=== PATIENT | female | born 1995 | race Caucasian/White ===

== ENCOUNTER → 2021-08-21 15:19 | Outpatient (BNVA) | payer OTHER, SELFPAY | PROVIDERS: PCP Internal Medicine Gastroenterology; Referring Provider Internal Medicine Gastroenterology; Visit Provider Surgery | DX: K64.5 Perianal venous thrombosis (principal) | CPT/HCPCS: 99202 ==

== ENCOUNTER → 2023-09-28 10:05 | Outpatient (BNVA) | payer OTHER, SELFPAY | PROVIDERS: PCP Nurse Practitioner; Visit Provider Physician Assistant ==

== ENCOUNTER 2023-10-13 08:59 | Outpatient (AMB) | payer OTHER, SELFPAY ==
--- NOTE | 2023-10-13 12:17 | A.OFFVIS_ITS ---
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 BMI 47.2 HPI Details Start time: 12.35pm, End time: 1.38pm ?I spent 53 minutes speaking with the patient on the phone plus an additional 10 minutes reviewing and updating records for a total of 63 minutes HPI Comments History of Present Illness Details Previous weight loss efforts: RDs, self diets, MWL program at [facility] Wakes up: 8am, Sleeps: 10pm Breakfast: skips or a [employer] powdered protein shake Lunch: 1.30-2pm (salad with chicken wings, sushi) Dinner: 7pm (protein , starch, vegetables) Snacks: 8-9pm (chocolate or ice cream) Exercise: none, has a Gym membership Fluids: Coffee 1 per day (cream and sugar), tea: rarely, soda: diet soda but stopped, juice: 3-4 /wk, ETOH: none PFSH Medical History (Updated 10/13/23 @ 12:41 by Kurtis Ferguson MD) ADHD Anxiety Depression Morbid obesity Thrombosed external hemorrhoids Polycystic ovarian syndrome Surgical History (Updated 10/13/23 @ 12:41 by Kurtis Ferguson MD) History of delivery History of wisdom tooth extraction Family History (Updated 08/21/21 @ 15:30 by JULY Yates) Mother Non-Hodgkin lymphoma Social History (Updated 08/21/21 @ 15:31 by JULY Yates) Patient Tobacco Use Status: Current everyday Tobacco user Physical Exam Vital Signs: BMI result Body Mass Index 47.2 Assessment & Plan Assessment & Plan (1) Polycystic ovarian syndrome: Code(s): E28.2 - Polycystic ovarian syndrome Plan: (2) Morbid obesity: Code(s): E66.01 - Morbid (severe) obesity due to excess calories Plan: 1.? Plan for lap sleeve gastrectomy. If diaphragmatic or ventral hernias are present at time of surgery, these will be repaired laparoscopically as well. Risks and complications were discussed in detail including possible conversion to an open procedure, anastomotic leak, bleeding requiring transfusion, small bowel obstruction, , DVT and pulmonary embolism, cardiac, or pulmonary complications, as intermediate accountant complications such as anastomotic ulcer, insufficient weight loss and vitamin deficiencies. I emphasized the importance of close follow-up, adherence to instructions and good communication. 2. Nutritional counseling. Start with 2 CELEBRATE REBUILD protein (buy at [facility] [employer] [facility]) shakes (TWO scoops EACH in 8oz low fat unsweetened almond milk each) at 9am-11am and 12pm-2pm, 1 protein bar (CELEBRATE protein bars, buy at [facility] [employer] [facility]) at 3pm-5pm, dinner at 6pm (10 forks of protein and 10 forks of salad/vegetables) AND one more protein bar after dinner at 8pm-10pm. So you do 2 protein shakes, 2 protein bars and one meal per day. Meal to include lean meat (beef, fish, pork, turkey, chicken), or lithuanian yogurt, or egg whites, or beans with a salad with olive oil and fruits (berries, pears, apples, kiwi). Avoid salt, breads, potatoes, rice, pasta, desserts. 3. Each shake would be drunk slowly, like coffee in a period of 2 hours. 4. Cut each bar in 4 pieces and eat each piece in 30min ?to make each bar last 2 hours. 5. I emphasized the importance of measuring accurately the food portion and measure it when serving the food in plate 6. The meal portions include 10 full-size forks of meat and 10 full-size forks of salad. You always eat the meat portion but you can replace up to 5 forks for salad/vegetables with rice, potatoes or pasta, or a fruit ?if you like. The less you do it the better weight loss will be. 7. One full-size fork is what it can be scooped on the fork without falling aside and not what can be bit with the fork. Use regular forks like those you find in a typical restaurant. 8.? Please send me weight measurements as soon as possible and then once a week. Always include your diet and exercise plan. 9. Start going to the Gym doing treadmill with an incline of 2.0 and speed of 3.0. Increase incline by 1 every 3 min to a max incline of 8.0, stay 3min at 8.0 and then return to 2.0 and repeat same steps until calorie goal is met. Goal is to burn 2000 calories per week on exercise, which means either 300 calories daily, or 400 calories 5 days per week, or 500 calories 4 days per week, or 650 calories 3 days per week. 10. I would storngly recommend that you purchased a stationary bike, elliptical or treadmill at home that can track calories. Let me know if you do so I can give you an exercise plan. 11.?It is important of avoiding and for at least 18 months postoperatively and has been discussed at the infosession. 12. Goal is to lose at least 1.5-2lbs per week 13. Goal to lose 10% of your weight before surgery, which is about 28lbs. Ultimate weight goal: 255lbs before surgery 14. Please follow the diet plan exactly without any change. If you don't like something about the plan or you feel hungry you need to communicate with me so I can help you revise the plan. You should not change the plan yourself. (3) Anxiety: Code(s): F41.9 - Anxiety disorder, unspecified Plan: Orders: Orders Insulin Today E28.2 - Polycystic ovarian syndrome, E66.01 - Morbid (severe) obesity due to excess calories, F32.A - Depression, unspecified, F41.9 - Anxiety disorder, unspecified, F90.9 - Attention-deficit hyperactivity disorder, unspecified type Hemoglobin A1c Today E28.2 - Polycystic ovarian syndrome, E66.01 - Morbid (severe) obesity due to excess calories, F32.A - Depression, unspecified, F41.9 - Anxiety disorder, unspecified, F90.9 - Attention-deficit hyperactivity disorder, unspecified type Lipid Panel Today E28.2 - Polycystic ovarian syndrome, E66.01 - Morbid (severe) obesity due to excess calories, F32.A - Depression, unspecified, F41.9 - Anxiety disorder, unspecified, F90.9 - Attention-deficit hyperactivity disorder, unspecified type Comprehensive Met. Panel Today E28.2 - Polycystic ovarian syndrome, E66.01 - Morbid (severe) obesity due to excess calories, F32.A - Depression, unspecified, F41.9 - Anxiety disorder, unspecified, F90.9 - Attention-deficit hyperactivity disorder, unspecified type Vitamin B12 and Folate Today E28.2 - Polycystic ovarian syndrome, E66.01 - Morbid (severe) obesity due to excess calories, F32.A - Depression, unspecified, F41.9 - Anxiety disorder, unspecified, F90.9 - Attention-deficit hyperactivity disorder, unspecified type Zinc Today E28.2 - Polycystic ovarian syndrome, E66.01 - Morbid (severe) obesity due to excess calories, F32.A - Depression, unspecified, F41.9 - Anxiety disorder, unspecified, F90.9 - Attention-deficit hyperactivity disorder, unspecified type Vitamin B1 Today E28.2 - Polycystic ovarian syndrome, E66.01 - Morbid (severe) obesity due to excess calories, F32.A - Depression, unspecified, F41.9 - Anxiety disorder, unspecified, F90.9 - Attention-deficit hyperactivity disorder, unspecified type Vitamin A Today E28.2 - Polycystic ovarian syndrome, E66.01 - Morbid (severe) obesity due to excess calories, F32.A - Depression, unspecified, F41.9 - Anxiety disorder, unspecified, F90.9 - Attention-deficit hyperactivity disorder, unspecified type TSH reflex Free T4 Today E28.2 - Polycystic ovarian syndrome, E66.01 - Morbid (severe) obesity due to excess calories, F32.A - Depression, unspecified, F41.9 - Anxiety disorder, unspecified, F90.9 - Attention-deficit hyperactivity disorder, unspecified type Ferritin Today E28.2 - Polycystic ovarian syndrome, E66.01 - Morbid (severe) obesity due to excess calories, F32.A - Depression, unspecified, F41.9 - Anxiety disorder, unspecified, F90.9 - Attention-deficit hyperactivity disorder, unspecified type H Pylori Breath Test Today E28.2 - Polycystic ovarian syndrome, E66.01 - Morbid (severe) obesity due to excess calories, F32.A - Depression, unspecified, F41.9 - Anxiety disorder, unspecified, F90.9 - Attention-deficit hyperactivity disorder, unspecified type Complete Blood Count Auto Diff Today E28.2 - Polycystic ovarian syndrome, E66.01 - Morbid (severe) obesity due to excess calories, F32.A - Depression, unspecified, F41.9 - Anxiety disorder, unspecified, F90.9 - Attention-deficit hyperactivity disorder, unspecified type IRON PROFILE Today E28.2 - Polycystic ovarian syndrome, E66.01 - Morbid (severe) obesity due to excess calories, F32.A - Depression, unspecified, F41.9 - Anxiety disorder, unspecified, F90.9 - Attention-deficit hyperactivity disorder, unspecified type C Reactive Protein Today E28.2 - Polycystic ovarian syndrome, E66.01 - Morbid (severe) obesity due to excess calories, F32.A - Depression, unspecified, F41.9 - Anxiety disorder, unspecified, F90.9 - Attention-deficit hyperactivity disorder, unspecified type Vitamin D 25-OH Total Today E28.2 - Polycystic ovarian syndrome, E66.01 - Morbid (severe) obesity due to excess calories, F32.A - Depression, unspecified, F41.9 - Anxiety disorder, unspecified, F90.9 - Attention-deficit hyperactivity disorder, unspecified type US abdomen comp w elastography Today E28.2 - Polycystic ovarian syndrome, E66.01 - Morbid (severe) obesity due to excess calories, F32.A - Depression, unspecified, F41.9 - Anxiety disorder, unspecified, F90.9 - Attention-deficit hyperactivity disorder, unspecified type XR chest 2V Today E28.2 - Polycystic ovarian syndrome, E66.01 - Morbid (severe) obesity due to excess calories, F32.A - Depression, unspecified, F41.9 - Anxiety disorder, unspecified, F90.9 - Attention-deficit hyperactivity disorder, unspecified type ECG 12 lead EKG Today E28.2 - Polycystic ovarian syndrome, E66.01 - Morbid (severe) obesity due to excess calories, F32.A - Depression, unspecified, F41.9 - Anxiety disorder, unspecified, F90.9 - Attention-deficit hyperactivity disorder, unspecified type FL upper GI w air Today E28.2 - Polycystic ovarian syndrome, E66.01 - Morbid (severe) obesity due to excess calories, F32.A - Depression, unspecified, F41.9 - Anxiety disorder, unspecified, F90.9 - Attention-deficit hyperactivity disorder, unspecified type Referrals Nutrition/Dietitian Referral E28.2 - Polycystic ovarian syndrome, E66.01 - Morbid (severe) obesity due to excess calories, F32.A - Depression, unspecified, F41.9 - Anxiety disorder, unspecified, F90.9 - Attention-deficit hyperactivity disorder, unspecified type Behavioral Health Referral E28.2 - Polycystic ovarian syndrome, E66.01 - Morbid (severe) obesity due to excess calories, F32.A - Depression, unspecified, F41.9 - Anxiety disorder, unspecified, F90.9 - Attention-deficit hyperactivity disorder, unspecified type Telehealth Telehealth Location of provider rendering services: practice address Location of patient: address on file Patient Identification confirmed using: Name, : Yes Telehealth method: voice only Patient verbally consented to treatment: Yes Patient verbally consented to billing insurance company: Yes Patient informed of any privacy concerns related to visit: Yes Minutes spent on Phone/Video with Pt.: 63 Coding Level of Care Code Tele [facility] Pt Level 5 (53647) Diagnoses Polycystic ovarian syndrome E28.2 Morbid obesity E66.01 Anxiety F41.9 Time Spent (min) 63
[2023-10-13 12:51] VITALS: BMI 47.2
== END 2023-10-13 13:39 | disposition home or self-care (01) ==
LOC: HO.HBS 08:59
PROVIDERS: PCP Nurse Practitioner; Visit Provider Surgery
DX: E66.01 Morbid (severe) obesity due to excess calories (principal); Z68.42 Body mass index [BMI] 45.0-49.9, adult; E28.2 Polycystic ovarian syndrome; F41.9 Anxiety disorder, unspecified
CPT/HCPCS: 99205

== ENCOUNTER → 2023-10-13 08:59 | Outpatient (BNVA) | payer OTHER, SELFPAY | PROVIDERS: PCP Nurse Practitioner; Visit Provider Surgery ==

== ENCOUNTER 2023-10-26 08:56 | Outpatient (AMB) | payer OTHER, SELFPAY ==
--- NOTE | 2023-10-26 08:37 | MHC.AMNUTRGE ---
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 She thinks she has RSV, has been sick fo 4 weeks . Hasn't been able to full commit to surgeons plan for this reason. Stopped drinking sugar sweetened beverages. has been drinking the shakes. Tries to eat lots of vegetables when feeling that she needs more. Exercise: none SWL classes: none Previous weight loss methods attempted [facility] 4 years ago surgical , had a baby 1 year 3 MO ago. Dietary counseling reduction Who buys your food self Who prepares/cooks your food self Meal frequency regular: dinner (late ) and snacks (after dinner ), irregular: lunch and never: breakfast (usually skipped ) Lifestyle Eating out 4 or more times/week Food frequency Fruit: daily, Vegetables: daily, Grains/pasta/breads/cereal (carbs): daily, Meats/poultry/fish (protein): daily (no seafood. eats chicken, cow and pork ), Meat substitutes/nuts/seeds/legumes: daily, Processed foods/meats: daily, Restaurants/fast foods: daily, Water: never, Soda: daily, Juice: daily, Coffee: daily and Alcohol: never Diagnosis Nutrition problem #1 overweight/obesity As related to (etiology) #1 excess energy intake and physical inactivity As evidenced by (sign/symptom) #1 high BMI Monitoring/Goals Nutrition problem monitoring total energy intake, level of knowledge/skill, total PRO intake, total CHO intake and weight Outcome progress progressing Learning/Education Readiness to learn good Stages of change action Educational materials provided Yes Most Recent Diabetes Results: No Data to Display [facility] Medical History (Updated 10/13/23 @ 12:41 by Kurtis Ferguson MD) ADHD Anxiety Depression Morbid obesity Thrombosed external hemorrhoids Polycystic ovarian syndrome Surgical History (Updated 10/13/23 @ 12:41 by Kurtis Ferguson MD) History of delivery History of wisdom tooth extraction Family History (Updated 08/21/21 @ 15:30 by JULY Yates) Mother Non-Hodgkin lymphoma Social History (Updated 08/21/21 @ 15:31 by JULY Yates) Patient Tobacco Use Status: Current everyday Tobacco user Assessment & Plan Assessment & Plan (1) Morbid obesity: Code(s): E66.01 - Morbid (severe) obesity due to excess calories Plan nutrition f/u 11/16 1pm telehealth Telehealth Telehealth Location of provider rendering services: practice address Location of patient: address on file Patient Identification confirmed using: Name, : Yes Telehealth method: voice only Patient verbally consented to treatment: Yes Patient verbally consented to billing insurance company: Yes Patient informed of any privacy concerns related to visit: Yes Minutes spent on Phone/Video with Pt.: 20 Coding Level of Care Code Nutr Indiv Intake (34265) Diagnoses Morbid obesity E66.01 Time Spent (min) 20
[2023-10-26 09:07] VITALS: BMI 46.4
== END 2023-10-26 09:06 | disposition home or self-care (01) ==
LOC: HO.HBS 08:56
PROVIDERS: PCP Nurse Practitioner; Visit Provider Dietitian, Registered
DX: E66.01 Morbid (severe) obesity due to excess calories (principal)

== ENCOUNTER → 2023-10-26 08:56 | Outpatient (BNVA) | payer OTHER, SELFPAY | PROVIDERS: PCP Nurse Practitioner; Visit Provider Dietitian, Registered | DX: E66.01 Morbid (severe) obesity due to excess calories (principal); Z68.42 Body mass index [BMI] 45.0-49.9, adult; Z71.3 Dietary counseling and surveillance | CPT/HCPCS: 97802 ==

== ENCOUNTER 2023-10-29 08:11 | Outpatient (AMB) | payer OTHER, SELFPAY ==
--- NOTE | 2023-10-29 10:08 | A.OFFVIS_ITS ---
Intake VS Expanded 10/29/23 10:17 Height 5 ft 5 in Weight 279 lb 9 oz BMI 46.5 Body Fat % 54.7 Body Fat Mass 153.1 Fat Free Mass 126.8 Visceral Fat Rating 19 Body Water % 36 Body Water Mass 100.7 Basal Metabolic Rate/Score 1,982 Intake Visit Reasons: TV Follow Up SWL - 1ST Allergies No Known Allergies Allergy (Verified 10/13/23 12:37) HPI TV Follow Up SWL - 1ST HPI Details Start time: 10.02am, End time: 10.24am ?I spent 17 minutes speaking with the patient on the phone plus an additional 5 minutes reviewing and updating records for a total of 22 minutes HPI Comments History of Present Illness Details Overall weight loss: 3.9lbs, 0r 1.37% TBWL. Is doing 2 Celebrate Rebuild protein shakes (2 scoops in almond milk), 2 Celebrate protein bars and one meal (10 forks of protein and 10 forks of salad or vegetables) at 7-8pm Exercise: Gym. Was ill last week however [facility] Medical History (Updated 10/13/23 @ 12:41 by Kurtis Ferguson MD) ADHD Anxiety Depression Morbid obesity Thrombosed external hemorrhoids Polycystic ovarian syndrome Surgical History (Updated 10/13/23 @ 12:41 by Kurtis Ferguson MD) History of delivery History of wisdom tooth extraction Family History (Updated 08/21/21 @ 15:30 by JLUY Yates) Mother Non-Hodgkin lymphoma Social History (Updated 08/21/21 @ 15:31 by JULY Yates) Patient Tobacco Use Status: Current everyday Tobacco user Assessment & Plan Assessment & Plan (1) Morbid obesity: Code(s): E66.01 - Morbid (severe) obesity due to excess calories Plan: 1. Change the nutritional plan to one Celebrate protein bar at 9am-11am, one CELEBRATE REBUILD protein (buy at hospital[facility] [employer] [facility]) shake (TWO scoops EACH in 8oz low fat unsweetened almond milk each) at 12pm-2pm, 1 protein bar (CELEBRATE protein bars, buy at [facility] [facility]) at 3pm-5pm, dinner at 6pm (10 forks of protein and 10 forks of salad/vegetables) AND one more protein bar after dinner at 8pm-10pm. So you do 1 protein shake, 3 protein bars and one meal per day. 2. Re-start exercise as soon as you feel better and the new treadmill arrives 3. Continue to send me weight measurements weekly on Wednesdays Telehealth Telehealth Location of provider rendering services: practice address Location of patient: address on file Patient Identification confirmed using: Name, : Yes Telehealth method: voice only Patient verbally consented to treatment: Yes Patient verbally consented to billing insurance company: Yes Patient informed of any privacy concerns related to visit: Yes Minutes spent on Phone/Video with Pt.: 22 Coding Level of Care Code Tele Est Pt Level 3 (19914) Diagnoses Morbid obesity E66.01 Time Spent (min) 22
[2023-10-29 10:17] VITALS: BMI 46.5
== END 2023-10-29 10:24 | disposition home or self-care (01) ==
PROVIDERS: PCP Nurse Practitioner; Visit Provider Surgery
DX: E66.01 Morbid (severe) obesity due to excess calories (principal); Z68.42 Body mass index [BMI] 45.0-49.9, adult
CPT/HCPCS: 99213

== ENCOUNTER → 2023-10-29 08:11 | Outpatient (BNVA) | payer OTHER, SELFPAY | PROVIDERS: PCP Nurse Practitioner; Visit Provider Surgery ==

== ENCOUNTER 2023-11-02 12:20 | Outpatient (REF) | payer OTHER, SELFPAY ==
--- NOTE | 2023-11-02 12:27 | ECG_ITS ---
Test Reason : MORBID OBESITY Blood Pressure : / mmHG Vent. Rate : 105 BPM Atrial Rate : 105 BPM P-R Int : 146 ms QRS Dur : 086 ms QT Int : 336 ms P-R-T Axes : 043 006 016 degrees QTc Int : 444 ms Sinus tachycardia Otherwise normal ECG No previous ECGs available Referred By: Kurtis Ferguson Electronically Signed By:SALONI GONZALEZ MD
[2023-11-02 12:50] LABS: MANUAL DIFF FLAG NO
[2023-11-02 13:04] LABS: Basophils Absolute Auto 0.1 X10*3/uL (0.0-0.2); Basophils Percent Auto 0.4 % (0-2); Eosinophils Absolute Auto 0.6 X10*3/uL (0.0-0.4); Eosinophils Percent Auto 4.2 % (0-4); Hematocrit 43.2 % (37.0-47.0); Hemoglobin 13.9 g/dl (12.0-16.0); Imm Gran Abs Auto 0.06 X10*3/uL (0.00-0.03); Imm Gran Pct Auto 0.4 % (0.0-0.4); Lymphocytes Absolute Auto 2.3 X10*3/uL (1.2-4.9); Lymphocytes Percent Auto 17.3 % (20-40); Mean Corpuscular HGB Conc 32.2 g/dl (31.0-35.0); Mean Corpuscular Hemoglobin 26.7 pg (27.0-33.0); Mean Corpuscular Volume 83.1 fL (80.0-98.0); Mean Platelet Volume 10.2 fL (9.4-12.3); Monocytes Absolute Auto 0.7 X10*3/uL (0.1-1.2); Monocytes Percent Auto 5.5 % (2-11); Neutrophils Absolute Auto 9.7 x10*3/uL (2.0-8.3); Neutrophils Percent Auto 72.2 % (45-73); Platelet Count 310 X10*3/uL (160-400); Red Cell Distribution Width 14.6 % (11.0-16.0); White Blood Count 13.4 X10*3/uL (4.8-10.8)
[2023-11-02 13:15] LABS: Estimated Average Glucose 97 mg/dL
[2023-11-02 14:18] LABS: Alanine Aminotransferase 29 U/L (0-31); Albumin Level 3.8 g/dL (3.5-5.0); Alkaline Phosphatase 105 U/L (39-117); Anion Gap 14 (12-20); Aspartate Amino Transferase 14 U/L (5-31); Bilirubin Total 0.3 mg/dL (0.0-1.0); Blood Urea Nitrogen 11 mg/dL (9-16); C Reactive Protein 3.51 mg/dL (< or = 0.50); Carbon Dioxide 20 mmol/L (22-29); Chloride 110 mmol/L (96-108); Cholesterol 130 mg/dL (<200); Estimated Glomerular Filt Rate > 60; Glucose Random 81 mg/dL (60-115); HDL Cholesterol 43 mg/dL (>40); Iron 39 mcg/dL (30-160); LDL Cholesterol Calculated 68 mg/dL (<100); Percent Iron Saturation 10 % (15-50); Potassium 3.7 mmol/L (3.3-5.1); Sodium 140 mmol/L (135-145); Total Iron Binding Capacity 376 mcg/dL (228-428); Total Protein 7.5 g/dL (6.5-8.0); Triglycerides 98 mg/dL (<150); Unsaturated Iron Binding 337 ug/dL
[2023-11-02 14:37] LABS: Ferritin 39 ng/mL (10-122); Insulin 12 uU/mL (2-29); TSH reflex Free T4 1.28 uIU/mL (0.32-4.0); Vitamin D 25-OH Total 23.3 ng/mL (>30)
[2023-11-02 14:42] LABS: Folate 6.7 ng/mL (> or = 4.0); Vitamin B12 398 pg/mL (200-900)
[2023-11-06 04:54] LABS: Zinc 74 mcg/dL (60-130)
[2023-11-08 14:58] LABS: Vitamin B1 6 nmol/L (8-30)
[2023-11-08 20:19] LABS: Vitamin A 51 mcg/dL (38-98)
== END 2023-11-02 12:21 | disposition home or self-care (01) ==
LOC: HO.XRAY 12:20
PROVIDERS: Visit Provider Surgery
DX: E66.01 Morbid (severe) obesity due to excess calories (principal); E28.2 Polycystic ovarian syndrome; F32.A Depression, unspecified; F41.9 Anxiety disorder, unspecified; F90.9 Attention-deficit hyperactivity disorder, unspecified type
CPT/HCPCS: 36415; 71046; 80053; 80061; 82306; 82607; 82728; 82746; 83036; 83525; 83540; 84425; 84443; 84590; 84630; 85025; 86140; 93005

== ENCOUNTER → 2023-11-02 12:27 | Outpatient (BNV) | payer OTHER, SELFPAY | PROVIDERS: Visit Provider Internal Medicine Cardiovascular Disease | DX: R00.0 Tachycardia, unspecified (principal) | CPT/HCPCS: 93010 ==

== ENCOUNTER 2023-11-16 09:40 | Outpatient (AMB) | payer OTHER, SELFPAY ==
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
== END 2023-11-16 10:11 | disposition home or self-care (01) ==
LOC: HO.HBST 09:41
PROVIDERS: Visit Provider Counselor Mental Health
DX: F90.9 Attention-deficit hyperactivity disorder, unspecified type (principal); E66.01 Morbid (severe) obesity due to excess calories
CPT/HCPCS: 90791

== ENCOUNTER 2023-11-16 10:09 | Outpatient (REF) | payer OTHER, SELFPAY | END 2023-11-16 10:10 | disposition home or self-care (01) | LOC: HO.US 10:09 | PROVIDERS: Visit Provider Surgery | DX: E28.2 Polycystic ovarian syndrome (principal); E66.01 Morbid (severe) obesity due to excess calories; F32.A Depression, unspecified; F41.9 Anxiety disorder, unspecified; F90.9 Attention-deficit hyperactivity disorder, unspecified type; Z71.3 Dietary counseling and surveillance | CPT/HCPCS: 76705; 76981; 97803 ==

== ENCOUNTER 2023-11-16 11:35 | Outpatient (AMB) | payer OTHER, SELFPAY ==
--- NOTE | 2023-11-16 10:50 | A.OFFVIS_ITS ---
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 She thinks she has RSV, has been sick for several weeks. however she is having her bars and shaks which she enjoys and honors her hunger cues as well Exercise: none due for being sick SWL classes: completed and scored well. reviewed today Previous weight loss methods attempted [facility] 4 years ago surgical , had a baby 1 year 3 MO ago. Dietary counseling reduction Diagnosis Nutrition problem #1 overweight/obesity As related to (etiology) #1 excess energy intake and physical inactivity As evidenced by (sign/symptom) #1 high BMI Monitoring/Goals Nutrition problem monitoring total energy intake, level of knowledge/skill, total PRO intake, total CHO intake and weight Outcome progress progressing Learning/Education Readiness to learn good Stages of change action Educational materials provided Yes Most Recent Diabetes Results: Cholesterol 130 mg/dL (<200) 11/02/23 HDL Cholesterol 43 mg/dL (>40) 11/02/23 Triglycerides 98 mg/dL (<150) 11/02/23 Creatinine 0.78 mg/dL (0.5-1.4) 11/02/23 Blood Urea Nitrogen 11 mg/dL (9-16) 11/02/23 Sodium 140 mmol/L (135-145) 11/02/23 Potassium 3.7 mmol/L (3.3-5.1) 11/02/23 Chloride 110 mmol/L (96-108) H 11/02/23 Carbon Dioxide 20 mmol/L (22-29) L 11/02/23 Calcium 9.0 mg/dL (8.4-10.2) 11/02/23 AST 14 U/L (5-31) 11/02/23 ALT 29 U/L (0-31) 11/02/23 Total Protein 7.5 g/dL (6.5-8.0) 11/02/23 Albumin 3.8 g/dL (3.5-5.0) 11/02/23 [facility] Medical History (Updated 11/03/23 @ 17:22 by Kurtis Ferguson MD) ADHD Anxiety Depression Morbid obesity Thrombosed external hemorrhoids Polycystic ovarian syndrome Surgical History (Updated 10/13/23 @ 12:41 by Kurtis Ferguson MD) History of delivery History of wisdom tooth extraction Family History (Updated 08/21/21 @ 15:30 by JULY Yates) Mother Non-Hodgkin lymphoma Social History (Updated 08/21/21 @ 15:31 by JULY Yates) Patient Tobacco Use Status: Current everyday Tobacco user Assessment & Plan Assessment & Plan (1) Morbid obesity: Code(s): E66.01 - Morbid (severe) obesity due to excess calories Plan Patient is cleared from a nutrition standpoint for bariatric surgery. Educational requirements have been completed. Reviewed vitamin supplementation and commitment to protein shake for several months post surgery. Encouraged communication with office as needed Telehealth Telehealth Location of provider rendering services: practice address Location of patient: address on file Patient Identification confirmed using: Name, : Yes Telehealth method: voice only Patient verbally consented to treatment: Yes Patient verbally consented to billing insurance company: Yes Patient informed of any privacy concerns related to visit: Yes Minutes spent on Phone/Video with Pt.: 10 Coding Level of Care Code Nutr Indiv Subseq ([id number]) Diagnoses Morbid obesity E66.01 Time Spent (min) 10
== END 2023-11-16 11:37 | disposition home or self-care (01) ==
LOC: HO.HBS 11:35
PROVIDERS: Visit Provider Dietitian, Registered
DX: E66.01 Morbid (severe) obesity due to excess calories (principal)

== ENCOUNTER 2023-11-19 07:56 | Outpatient (AMB) | payer OTHER, SELFPAY ==
--- NOTE | 2023-11-19 08:10 | MHC.OFFVISWM ---
Intake VS Expanded 11/19/23 08:23 Height 5 ft 5 in Weight 271 lb 6 oz BMI 45.2 Body Fat % 59 Body Fat Mass 160.2 Fat Free Mass 111.4 Visceral Fat Rating 27 Body Water % 28.1 Body Water Mass 76.3 Basal Metabolic Rate/Score 1,431 Intake Visit Reasons: TV Follow Up SWL Allergies No Known Allergies Allergy (Verified 10/13/23 12:37) HPI TV Follow Up SWL HPI Details Start time: 8.02am, End time: 8.27am ?I spent 22 minutes speaking with the patient on the phone plus an additional 5 minutes reviewing and updating records for a total of 27 minutes HPI Comments History of Present Illness Details Overall weight loss: 12.2lbs, or 4.3% TBWL Is doing a Celebrate Rebuild protein shake (2 scoops in almond milk), 3 Celebrate protein bars and one meal (10 forks of protein and 10 forks of salad or vegetables) Exercise: treadmill for 200 calories per day PFSH Medical History (Updated 11/03/23 @ 17:22 by Kurtis Ferguson MD) ADHD Anxiety Depression Morbid obesity Thrombosed external hemorrhoids Polycystic ovarian syndrome Surgical History (Updated 10/13/23 @ 12:41 by Kurtis Ferguson MD) History of delivery History of wisdom tooth extraction Family History (Updated 08/21/21 @ 15:30 by JULY Yates) Mother Non-Hodgkin lymphoma Social History (Updated 08/21/21 @ 15:31 by JULY Yates) Patient Tobacco Use Status: Current everyday Tobacco user Assessment & Plan Assessment & Plan (1) Morbid obesity: Code(s): E66.01 - Morbid (severe) obesity due to excess calories Plan: 1. Continue same nutritional plan of Celebrate Rebuild protein shake (2 scoops in almond milk), 3 Celebrate protein bars and one meal (10 forks of protein and 10 forks of salad or vegetables) 2. Exercise: continue treadmill for 200 calories and add another 100 calories in the afternoon for a total of 300 calories per day 3. Continue to send me weight measurements weekly on Fridays or Saturdays whatever day works best for you Telehealth Telehealth Location of provider rendering services: practice address Location of patient: address on file Patient Identification confirmed using: Name, : Yes Telehealth method: voice only Patient verbally consented to treatment: Yes Patient verbally consented to billing insurance company: Yes Patient informed of any privacy concerns related to visit: Yes Minutes spent on Phone/Video with Pt.: 27 Coding Level of Care Code Tele Est Pt Level 3 (34401) Diagnoses Morbid obesity E66.01 Time Spent (min) 27
[2023-11-19 08:23] VITALS: BMI 45.2
== END 2023-11-19 08:28 | disposition home or self-care (01) ==
LOC: HO.HBS 07:56
PROVIDERS: Visit Provider Surgery
DX: E66.01 Morbid (severe) obesity due to excess calories (principal); Z68.42 Body mass index [BMI] 45.0-49.9, adult
CPT/HCPCS: 99213

== ENCOUNTER → 2023-11-19 07:56 | Outpatient (BNVA) | payer OTHER, SELFPAY | PROVIDERS: Visit Provider Surgery ==

== ENCOUNTER 2023-12-08 12:07 | Day surgery (SDC) | payer OTHER, SELFPAY ==
[2023-12-06 10:07] VITALS: BMI 45.1
--- NOTE | 2023-12-07 08:41 | HO.ANESPROP2 ---
HPI - Anesthesia Eval Consult details Narrative: 28yo F for Upper Endoscopy PMFSH Active Problems Active Problems: All Active Problems (Updated 11/03/23 @ 17:22 by Kurtis Ferguson MD) Vitamin B12 deficiency (Acute) Vitamin D deficiency (Acute) ADHD (Acute) Anxiety (Acute) Depression (Acute) Morbid obesity (Acute) Thrombosed external hemorrhoids (Acute) Polycystic ovarian syndrome (Acute) Past Medical History Medical History (Updated 11/03/23 @ 17:22 by Kurtis Ferguson MD) ADHD Anxiety Depression Morbid obesity Thrombosed external hemorrhoids Polycystic ovarian syndrome Family History Family History (Updated 08/21/21 @ 15:30 by JULY Yates) Mother Non-Hodgkin lymphoma Surgical History Surgical History (Updated 10/13/23 @ 12:41 by Kurtis Ferguson MD) History of delivery History of wisdom tooth extraction Social History Social History (Updated 08/21/21 @ 15:31 by JULY Yates) Patient Tobacco Use Status: Current everyday Tobacco user Meds Allergies Allergy/AdvReac Type Severity Reaction Status Date / Time No Known Allergies Allergy Verified 10/13/23 12:37 Home Medications Medication Instructions Recorded Confirmed Last Taken Type etonogestrel 0.12 mg-ethinyl vag ring vaginal DIRECTED 08/21/21 08/21/21 Unknown History estradiol 0.015 mg/24 hr vaginal ring bupropion HCl 300 mg 24 hr tablet, 300 mg PO QAM 10/13/23 10/13/23 Unknown History extended release lisdexamfetamine 30 mg capsule 30 mg PO DAILY 10/13/23 10/13/23 Unknown History (Perla) Exam Height,Weight and Vital Signs: Height 5 ft 5 in Weight 122.924 kg Pertinent Lab Results Pertinent Lab Results: Laboratory Tests 11/02/23 12:48 WBC 13.4 H Hgb 13.9 Hct 43.2 Plt Count 310 Sodium 140 Potassium 3.7 Chloride 110 H Carbon Dioxide 20 L BUN 11 Creatinine 0.78 Narrative Narrative: EKG 10/2023 Vent. Rate : 105 BPM Atrial Rate : 105 BPM P-R Int : 146 ms QRS Dur : 086 ms QT Int : 336 ms P-R-T Axes : 043 006 016 degrees QTc Int : 444 ms Sinus tachycardia Otherwise normal ECG No previous ECGs available Assessment and Plan Assessment Anesthesia Assessment: Chart Reviewed
[2023-12-08 12:56] VITALS: BMI 45.6
--- NOTE | 2023-12-08 13:03 | P.BOP_ITS ---
Brief Operative Note Date of Service: 12/08/23 Pre-op diagnosis: GERD Post-op diagnosis: same (esophagitis I) Procedure: PROCEDURE DATE: 12/08/2023 PREOPERATIVE DIAGNOSIS: GERD POSTOPERATIVE DIAGNOSIS: ?Same as above. 1) esophagitis I PROCEDURE: [id number] with biopsies Surgeon: ?Mc Ferguson M.D.. Ph.D. Data Collection Associate: None ? Anesthesia: IV sedation Estimated blood loss: ?Minimal FINDINGS AND PROCEDURE: ? OPERATIVE INDICATIONS: ?The patient is a 28 year old female known to me who is interested in bariatric surgery. The patient has GERD symptoms and I need to assess for esophagitis and hiatal hernia. Based on this information I recommended an upper endoscopy to evaluate the patient's symptoms. Risks and complications of the surgery were discussed with the patient in advance par ticularly the possibility of perforation or bleeding that may require surgical intervention. The patient understood the risks and was in agreement with the plan. ? PROCEDURE: After informed consent was obtained by the patient, the patient was ?transferred to the Operating Room and was placed in the supine position.? After successful induction of IV sedation, a mouth block was inserted and the patient was placed in the left lateral decubitus position. An upper endoscopy was performed next, the oropharynx and esophagus appeared within the normal limits. There was no hiatal hernia. The z-line was irregular with tongues of esophageal mucosa protruding into the esophagus in less than 25% circumference. Two biopsies were obtained from the distal esohagus 2-3 cm proximal to the GE junction and two additional biopsies from the GE junction. The stomach was entered and it appeared to be of normal size. There was no gastritis. There was no stricture or ulcer. Biopsies were obtained from the gas tric fundus as well as the antrum. No significant bleeding was noted from any of the biopsy sites. The scope was then advanced into the duodenum which appeared to be normal as well. At that point the duodenum ?and the sleeve were decompressed and the scope was withdrawn from the patient's mouth. The patient extubated and was transferred in stable condition to the Recovery Room for further care. I was present and performed all steps of the procedure. There were no residents to assist with this case. Mc Ferguson M.D., Ph.D. Surgeon: Kurtis Ferguson MD Anesthesia: MAC Was an Data Collection Associate used for this Procedure?: No Estimated blood loss (mL): 0 IV fluids (mL): 400 Urine output (mL): 0 (No [place] to record output) Pathology: other (1) antrum x1, 2) fundus x1, 3) GE junction x2, 4) distal esophagus x2) Condition: stable Disposition: PACU
--- NOTE | 2023-12-08 13:03 | MHC.SHP ---
Pre-Procedural Eval Section A Date of Service: 12/08/23 The patient is an INPATIENT: No The History & Physical has been completed within 30 days and I have reviewed it.: No Section B Chief Complaint: Morbid (severe) obesity due to excess calories Details of Present Illness: GERD Relevant Family History (Specify if Yes): No Relevant Social History: None Present Medications: None Medical History: No relevant PMH History of Previous Operations: No relevant previous surgery Allergies: Allergies Allergy/AdvReac Type Severity Reaction Status Date / Time No Known Allergies Allergy Verified 10/13/23 12:37 Review of Systems Sugical H&P ROS: Negative: Constitution, Cardiovascular, Respiratory, Neurological, Psychiatric, Hem-Onc, Allergic/Immunologic, Gastrointestinal, Genitourinary, Musculoskeletal, Integumentary, Endocrine and Eyes/Ears/Nose/Throat Exam Surgical H&P Exam: Normal: HEENT, Normal: Heart, Normal: Lungs, Normal: Extremities, Normal: Abdomen, Normal: Skin and Normal: Neurological Plan Diagnosis/Plan: Unchanged (EGD to assess for esophagitis. Risks of bleeding and perforation were discussed) I have reviewed the history and physical and performed a pertinent physical examination on my patient. No changes have occurred unless specified. Time Spent With Patient Time: Total time managing care of this patient today ____ minutes.
[2023-12-08 13:21] LABS: UPreg QC Valid YES; Urine Pregnancy NEGATIVE (NEGATIVE)
[2023-12-08 13:31] VITALS: BP 137/84; PULSE 77; RESP 16; TEMP 36.7; O2SAT 94
--- NOTE | 2023-12-08 13:31 | HO.ANESPROP2 ---
[facility] Active Problems Active Problems: All Active Problems (Updated 11/03/23 @ 17:22 by Kurtis Ferguson MD) Vitamin B12 deficiency (Acute) Vitamin D deficiency (Acute) ADHD (Acute) Anxiety (Acute) Depression (Acute) Morbid obesity (Acute) Thrombosed external hemorrhoids (Acute) Polycystic ovarian syndrome (Acute) Past Medical History Medical History ADHD Anxiety Depression Morbid obesity Thrombosed external hemorrhoids Polycystic ovarian syndrome Family History Family History (Updated 08/21/21 @ 15:30 by JULY Yates) Mother Non-Hodgkin lymphoma Family history of problems with anesthesia: No Surgical History Surgical History History of delivery History of wisdom tooth extraction History of Problems with Anesthesia: No Social History Social History (Updated 08/21/21 @ 15:31 by JULY Yates) Patient Tobacco Use Status: Former Tobacco user Quit Date: 11/29 Smoked in Last 30 Days: Yes Use of substances other than those prescribed or required for medical reasons: No Are you DNR?: No Advance Directives: No Advance Directives Information Provided: Yes Meds Allergies Allergy/AdvReac Type Severity Reaction Status Date / Time No Known Allergies Allergy Verified 12/08/23 13:31 Active Medications: Current Medications Lactated Ringer's (Lr) 1,000 mls @ 80 mls/hr IVCONT .[id number] [facility] Lactated Ringer's (Lr) 1,000 mls @ 100 mls/hr IVCONT .Q10H [facility] Home Medications Medication Instructions Recorded Confirmed Last Taken Type etonogestrel 0.12 mg-ethinyl vag ring vaginal DIRECTED 08/21/21 08/21/21 Unknown History estradiol 0.015 mg/24 hr vaginal ring bupropion HCl 300 mg 24 hr tablet, 300 mg PO QAM 10/13/23 10/13/23 Unknown History extended release lisdexamfetamine 30 mg capsule 30 mg PO DAILY 10/13/23 10/13/23 Unknown History (Perla) Exam Height,Weight and Vital Signs: Height 5 ft 5 in Weight 124.375 kg Pertinent Lab Results Pertinent Lab Results: Laboratory Tests 12/08/23 12:53 Urine Test NEGATIVE Airway Mallampati Class: III TM Dist: >3cm Neck ROM: Full Assessment and Plan Assessment Anesthesia Assessment: Anesthesia Plan Discussed and Chart Reviewed Final Anesthetic Review Family History of Problems with Anesthesia: No History of Problems with Anesthesia: No NPO: Yes ASA Class: III Final Preanesthetic Review: No Changes in Pt Med Stat, Meds/Allgs Chart Reviewed, Consent Obtained/Reviewed and Anes Risks/Benef Reviewed Patient Risk: Intermediate Procedure Risk: Low Anesthetic Plan Anesthetic Plan: TIVA Disposition: Standard PACU
[2023-12-08] MEDS: Lactated Ringers 1,000 ML 80 ML IVCONT (13:42)
[2023-12-08 14:22] VITALS: BP 107/51; PULSE 108; RESP 16; TEMP 36.6; O2SAT 94
[2023-12-08 14:37] VITALS: BP 107/81; PULSE 104; RESP 16; TEMP 36.1; O2SAT 95
== END 2023-12-08 15:28 | disposition home or self-care (01) ==
PROVIDERS: Nurse Practitioner; Visit Provider Surgery
PROC: 0DJ08ZZ Inspection of Upper Intestinal Tract, Via Natural or Artificial Opening Endoscopic (ICD-10-PCS; CPT 43235; principal; 2023-12-08 13:40)
DX: K21.9 Gastro-esophageal reflux disease without esophagitis (principal); K20.90 Esophagitis, unspecified without bleeding; E66.01 Morbid (severe) obesity due to excess calories; Z68.42 Body mass index [BMI] 45.0-49.9, adult; K64.5 Perianal venous thrombosis; E55.9 Vitamin D deficiency, unspecified; E53.8 Deficiency of other specified B group vitamins; F90.9 Attention-deficit hyperactivity disorder, unspecified type; F32.A Depression, unspecified; F41.9 Anxiety disorder, unspecified; E28.2 Polycystic ovarian syndrome; Z79.899 Other long term (current) drug therapy; Z87.891 Personal history of nicotine dependence
CPT/HCPCS: 43239; 81025; 88305; 88313; 88342; J1100; J2250; J2704

== ENCOUNTER → 2023-12-08 12:07 | Outpatient (BNV) | payer OTHER, SELFPAY | PROVIDERS: Visit Provider Surgery | DX: K21.00 Gastro-esophageal reflux disease with esophagitis, without bleeding (principal) | CPT/HCPCS: 43239 ==

== ENCOUNTER 2023-12-10 08:07 | Outpatient (AMB) | payer OTHER, SELFPAY ==
--- NOTE | 2023-12-10 10:34 | MHC.OFFVISWM ---
Intake VS Expanded 12/10/23 10:45 Height 5 ft 5 in Weight 268 lb 8 oz BMI 44.7 Body Fat % 58.2 Body Fat Mass 156.4 Fat Free Mass 112.4 Visceral Fat Rating 26 Body Water % 28.7 Body Water Mass 77.1 Basal Metabolic Rate/Score 1,464 Intake Visit Reasons: TV Follow Up SWL Allergies No Known Allergies Allergy (Verified 12/08/23 13:31) HPI TV Follow Up SWL HPI Details Start time: 10.31am, End time: 10.52am ?I spent 16 minutes speaking with the patient on the phone plus an additional 5 minutes reviewing and updating records for a total of 21 minutes HPI Comments History of Present Illness Details Overall weight loss: 15lbs, or 5.29% TBWL Is doing one Celebrate Rebuild protein shake (2 scoops in almond milk), 3 Celebrate protein bars and one meal (10 forks of protein and 10 forks of salad or vegetables) Exercise: is doing treadmill for 5 days for 300 calories PFSH Medical History ADHD Anxiety Depression Morbid obesity Thrombosed external hemorrhoids Polycystic ovarian syndrome Surgical History History of delivery History of wisdom tooth extraction Family History (Updated 08/21/21 @ 15:30 by JULY Yates) Mother Non-Hodgkin lymphoma Social History (Updated 08/21/21 @ 15:31 by JULY Yates) Patient Tobacco Use Status: Former Tobacco user Quit Date: 11/29 Assessment & Plan Assessment & Plan (1) Morbid obesity: Code(s): E66.01 - Morbid (severe) obesity due to excess calories Plan: 1. Continue same nutritional plan of one Celebrate Rebuild protein shake (2 scoops in almond milk), 3 Celebrate protein bars and one meal (10 forks of protein and 10 forks of salad or vegetables) 2. Please send a picture of your meal plate daily after you measure it but before you eat it 3. Exercise: continue treadmill for 5 days but increase to 400 calories per day, or increase days to 7 days per week for 300 calories. Goal is to burn 2000 calories per week 4. Continue to send me weight measurements weekly on Fridays Telehealth Telehealth Location of provider rendering services: practice address Location of patient: address on file Patient Identification confirmed using: Name, : Yes Telehealth method: voice only Patient verbally consented to treatment: Yes Patient verbally consented to billing insurance company: Yes Patient informed of any privacy concerns related to visit: Yes Minutes spent on Phone/Video with Pt.: 21 Coding Level of Care Code Tele Est Pt Level 3 (62131) Diagnoses Morbid obesity E66.01 Time Spent (min) 21
[2023-12-10 10:45] VITALS: BMI 44.7
== END 2023-12-10 10:53 | disposition home or self-care (01) ==
LOC: HO.HBS 08:08
PROVIDERS: Visit Provider Surgery
DX: E66.01 Morbid (severe) obesity due to excess calories (principal); Z68.41 Body mass index [BMI] 40.0-44.9, adult
CPT/HCPCS: 99213

== ENCOUNTER → 2023-12-10 08:07 | Outpatient (BNVA) | payer OTHER, SELFPAY | PROVIDERS: Visit Provider Surgery ==

== ENCOUNTER 2023-12-14 10:33 | Outpatient (AMB) | payer OTHER, SELFPAY ==
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
== END 2023-12-14 15:14 | disposition home or self-care (01) ==
LOC: HO.HBST 10:33
PROVIDERS: Visit Provider Counselor Mental Health
DX: F90.9 Attention-deficit hyperactivity disorder, unspecified type (principal); E66.01 Morbid (severe) obesity due to excess calories
CPT/HCPCS: 90834

== ENCOUNTER → 2023-12-14 10:33 | Outpatient (BNVA) | payer OTHER, SELFPAY | PROVIDERS: Visit Provider Counselor Mental Health ==

== ENCOUNTER 2023-12-31 09:56 | Outpatient (AMB) | payer OTHER, SELFPAY ==
--- NOTE | 2023-12-31 09:59 | MHC.OFFVISWM ---
Intake VS Expanded 12/31/23 10:06 BP 136/74 Blood Pressure Location Rt brachial Blood Pressure Position Sitting Pulse 79 Pulse Source Pulse Oximeter Temp 96.4 F L Temperature Source Tympanic Pulse Oximetry 96 Oxygen Delivery Method Room Air Height 5 ft 5 in Weight 254 lb 12.8 oz BMI 42.4 Body Fat % 47.0 Body Fat Mass 119.8 Fat Free Mass 135.0 Visceral Fat Rating 12.0 Body Water % 38.1 Body Water Mass 97.0 Muscle Mass/Score 128.0 Basal Metabolic Rate/Score 1,948 Intake Visit Reasons: OV Pre Op LSG 01/13/24 Allergies No Known Allergies Allergy (Verified 12/31/23 10:48) Medication List - Last Reconciled 12/31/23 by Kurtis Ferguson MD bupropion HCl 300 mg PO QAM cholecalciferol (vitamin D3) 125 mcg PO DAILY etonogestrel-ethinyl estradiol 0.12-0.015 mg/24 hr vag rings vaginal DIRECTED lisdexamfetamine (Vyvanse) 30 mg PO DAILY mecobalamin (vitamin B12) 1,000 mcg sublingual DAILY ondansetron 4 mg PO Q12H pantoprazole 40 mg PO DAILY polyethylene glycol 3350 (Miralax) 17 grams PO DAILY sucralfate 10 mL PO BID HPI HPI Comments History of Present Illness Details Overall weight loss: 29lbs, or 10.22% TBWL Is doing one Celebrate Rebuild shake (2 scoops in almond milk), 3 Celebrate protein bars and one meal (10 forks of protein and 10 forks of salad or vegetables) Exercise: treadmill for 500 calories per work-out, 5 days per week FORMERLY [facility] Medical History ADHD Anxiety Depression Morbid obesity Thrombosed external hemorrhoids Polycystic ovarian syndrome Surgical History History of delivery History of wisdom tooth extraction Family History Mother Non-Hodgkin lymphoma Social History Patient Tobacco Use Status: Former Tobacco user Quit Date: 11/29 Physical Exam Vital Signs: Last Vital Signs Temp 96.4 F L 12/31/23 10:06 Pulse 79 12/31/23 10:06 BP 136/74 12/31/23 10:06 Pulse Ox 96 12/31/23 10:06 Oxygen Delivery Method Room Air 12/31/23 10:06 BMI result Body Mass Index 42.4 GI Inspection: Yes normal to inspection (android body habitus), Yes incision (well healed) and Yes obesity Palpation (GI): Soft to palpation Extrem Right lower extremity: normal to inspection Left lower extremity: normal to inspection Assessment & Plan Assessment & Plan (1) Morbid obesity: Code(s): E66.01 - Morbid (severe) obesity due to excess calories Plan: 1. Plan for lap sleeve gastrectomy including upper GI endoscopy. All tests has been completed and reviewed and the patient is cleared for the surgery. ?If diaphragmatic or ventral hernias are present at time of surgery, these will be repaired laparoscopically as well. Risks and complications were discussed in detail including possible conversion to an open procedure, anastomotic leak, bleeding requiring transfusion, small bowel obstruction, , DVT and pulmonary embolism, cardiac, or pulmonary complications, as fpc complications such as anastomotic ulcer, insufficient weight loss and vitamin deficiencies. I emphasized the importance of close follow-up, adherence to instructions and good communication. So far she has proven to be an excellent communicator and very compliant with all our directions accomplishing a great weight loss. I believe that she is an excellent candidate and she is ready. 2. Preop prescriptions were provided and explained the purpose of each one. Need to be purchased preop. Start Pantoprazole now as you get it from the pharmacy, 1 pill per day. Sucralfate and Zofran are for after surgery as needed. 3. Bowel prep: please do 7 packets ?of Miralax mixing each one with a an 8oz glass of water, crystal light, gatorade zero, or propel ?on 01/11/24 and the same amount on 01/12/24. The Miralax you begin with one packet at a time in 8oz water or crystal light, gatorade zero, or propel ?as early in the day as you can and you do them back to back until you finish them. Continue the protein shakes during? the bowel prep. 4. Needs to purchase 1oz medicine cups . 5. Needs to purchase Children's liquid Tylenol for postop pain control. 6. She needs to stop the control pill as of tomorrow 01/01/24. Do not re-start it until 1 month after surgery. Avoid aspirin, motrin, Advil, Aleve, Ibuprofen, Naproxyn. Tylenol is OK. 7. She needs to purchase the Celebrate 4:1 protein shakes from the hospital's gift shop. 8. Will do basic preop blood work-up any day between and Wednesday01/07/24. 9. Importance of adherence to postop folllow-up and recommendations was underscored and she understands that. 10. Stop food and bars as of Wednesday01/02/24 and continue with 2 Celebrate Rebuild protein shakes (ONE scoop EACH in 8oz almond milk) at 10am-12pm and 1pm-3pm and THREE more Celebrate Rebuild protein shakes with TWO scoops in 8oz of almond milk at 4pm-6pm, 7pm-9pm and 10pm-12am. 10. No soups, broths or V8 11. The patient's?medical?history has been reviewed and they are considered low risk for post op DVT and therefore DVT prophylaxis is not considered necessary. Travel after surgery was reviewed. The patient has not disclosed any travel plans during the first 30 days after surgery and they have been advised that within the first 30 days after surgery any bus, plane, train or car travel over 2 hours in duration is contraindicated due to the possibility of developing blood clots from immobility. Any travel, needs to include periods of ambulation of 10 minutes in duration every 2 hours.? Patient was instructed to discuss any plans for travel during this period with their bariatric surgeon.? 12. Please take at the day of surgery the following medications: none 13. Stop any control pills and don't use them for one month after surgery 14. Absolutely no smoking or vaping, or marijuana until the surgery and for at least the first 4 weeks. Only nicotine patches are allowed. 15. Send me weight measurements on 01/05/24 and then on 01/13/24 the day of surgery before you go to the hospital. 16. Avoid any steroids by mouth for any reason. Let me know if someone prescribes them to you 17. These instructions supersede anything else you read in the handbook, anything you watched in videos or classes or you were told by any other provider. If there is any conflict, you follow the above instructions and nothing else. Orders: Orders TSH reflex Free T4 Today E66.01 - Morbid (severe) obesity due to excess calories Prothrombin Time INR Today E66.01 - Morbid (severe) obesity due to excess calories C Reactive Protein Today E66.01 - Morbid (severe) obesity due to excess calories Lipid Panel Today E66.01 - Morbid (severe) obesity due to excess calories Complete Blood Count Auto Diff Today E66.01 - Morbid (severe) obesity due to excess calories Type and Screen Today E66.01 - Morbid (severe) obesity due to excess calories Partial Thromboplastin Time Today E66.01 - Morbid (severe) obesity due to excess calories Hemoglobin A1c Today E66.01 - Morbid (severe) obesity due to excess calories Comprehensive Met. Panel Today E66.01 - Morbid (severe) obesity due to excess calories Insulin Today E66.01 - Morbid (severe) obesity due to excess calories Medications: New ondansetron Only take one every 12 hours as needed if you have nausea 4 mg PO Q12H 20 tabs 0RF nausea and vomiting R11.0 - Nausea polyethylene glycol 3350 (Miralax) Mix each packet with 8oz of water, Crystal light, or Gatorade zero, or Propel and do 7 packets on 01/11/24 and another 7 packets on 01/12/24 17 grams PO DAILY 14 ea 0RF Z01.818 - Encounter for other preprocedural examination pantoprazole 40 mg PO DAILY 90 tabs 0RF K21.9 - Gastro-esophageal reflux disease without esophagitis sucralfate 10 mL PO BID 600 mL 2RF K21.9 - Gastro-esophageal reflux disease without esophagitis Coding Level of Care Code Est Pt Level 4 (04761) Diagnoses Morbid obesity E66.01 Time Spent (min) 35
[2023-12-31 10:06] VITALS: BP 136/74; PULSE 79; TEMP 35.8; O2SAT 96; BMI 42.4
== END 2023-12-31 10:58 | disposition home or self-care (01) ==
PROVIDERS: Visit Provider Surgery
DX: E66.01 Morbid (severe) obesity due to excess calories (principal)
CPT/HCPCS: 99214

== ENCOUNTER 2023-12-31 10:50 | Outpatient (REF) | payer OTHER, SELFPAY ==
--- NOTE | ~2023-12-31 | FL_ITS ---
EXAMINATION: XR FLUOROSCOPY UPPER GI WITH AIR CLINICAL INFORMATION: Preop evaluation prior to bariatric surgery COMPARISON: None TECHNIQUE: Fluoroscopic air contrast upper GI examination was performed utilizing standard techniques with thin and thick barium and effervescent granules. Numerous spot images were obtained. FINDINGS: Dual and single contrast images of the esophagus demonstrate normal caliber, contour, and mucosal pattern. No evidence of stricture, mass, or ulcerations identified. Esophageal peristalsis was normal. No evidence of hiatus hernia identified. Gastroesophageal reflux is seen up to the midesophagus. Dual contrast and single contrast images of the stomach demonstrated normal contour and mucosal pattern without evidence of mass, ulceration, or other abnormality. Contrast freely passed into the gastric antrum and duodenal bulb without delay. Single and air-contrast images of the duodenal bulb demonstrate no abnormality. The duodenal sweep has a normal appearance, course, and mucosal fold appearance. No malrotation. The imaged proximal jejunum has a normal fold pattern and caliber. FLUOROSCOPY TIME: 2 minutes 45 seconds Number of Spot Images: 6 Number of Cine: 6 DOSE AREA PRODUCT: 2387 uGy-m2 (microgray-meter squared) FL/FL upper GI w air IMPRESSION: 1. Moderate gastroesophageal reflux. This procedure was performed by Joshua Esquivel PA-C, and supervised by Dr. Lees
== END 2023-12-31 10:51 | disposition home or self-care (01) ==
LOC: HO.XRAY 10:50
PROVIDERS: Visit Provider Surgery
DX: E66.01 Morbid (severe) obesity due to excess calories (principal); E28.2 Polycystic ovarian syndrome; F32.A Depression, unspecified; F41.9 Anxiety disorder, unspecified; F90.9 Attention-deficit hyperactivity disorder, unspecified type
CPT/HCPCS: 74246; 99212

== ENCOUNTER → 2023-12-31 10:52 | Outpatient (BNV) | payer OTHER, SELFPAY | PROVIDERS: Visit Provider Physician Assistant Surgical | DX: Z01.818 Encounter for other preprocedural examination (principal); E66.01 Morbid (severe) obesity due to excess calories | CPT/HCPCS: 74246 ==

== ENCOUNTER 2024-01-13 06:00 | Inpatient (IN) | payer OTHER, SELFPAY ==
[2024-01-05 11:30] VITALS: BMI 42.1
[2024-01-06 12:43] LABS: MANUAL DIFF FLAG NO
[2024-01-06 13:28] LABS: Prothrombin Time 11.6 SEC (11.1-13.3)
[2024-01-06 13:29] LABS: Basophils Percent Auto 0.3 % (0-2); Eosinophils Absolute Auto 0.3 X10*3/uL (0.0-0.4); Eosinophils Percent Auto 4.2 % (0-4); Hematocrit 43.3 % (37.0-47.0); Imm Gran Abs Auto 0.02 X10*3/uL (0.00-0.03); Imm Gran Pct Auto 0.3 % (0.0-0.4); Lymphocytes Absolute Auto 1.7 X10*3/uL (1.2-4.9); Lymphocytes Percent Auto 21.1 % (20-40); Mean Corpuscular HGB Conc 32.3 g/dl (31.0-35.0); Mean Corpuscular Hemoglobin 26.8 pg (27.0-33.0); Mean Platelet Volume 11.5 fL (9.4-12.3); Monocytes Absolute Auto 0.6 X10*3/uL (0.1-1.2); Neutrophils Absolute Auto 5.3 x10*3/uL (2.0-8.3); Neutrophils Percent Auto 67.1 % (45-73); Platelet Count 254 X10*3/uL (160-400); Red Blood Count 5.22 X10*6/uL (4.20-5.50); Red Cell Distribution Width 13.8 % (11.0-16.0); White Blood Count 7.8 X10*3/uL (4.8-10.8)
[2024-01-06 13:30] LABS: Partial Thromboplastin Time 30.5 SEC (26.0-36.8)
[2024-01-06 13:32] LABS: Estimated Average Glucose 91 mg/dL; Hemoglobin A1c % 4.8 % (<6.0)
[2024-01-06 13:58] LABS: Alanine Aminotransferase 90 U/L (0-31); Albumin Level 3.9 g/dL (3.5-5.0); Alkaline Phosphatase 122 U/L (39-117); Anion Gap 16 (12-20); Aspartate Amino Transferase 33 U/L (5-31); Bilirubin Total 0.6 mg/dL (0.0-1.0); Blood Urea Nitrogen 8 mg/dL (9-16); C Reactive Protein 2.62 mg/dL (< or = 0.50); Calcium 9.3 mg/dL (8.4-10.2); Carbon Dioxide 23 mmol/L (22-29); Chloride 106 mmol/L (96-108); Cholesterol 146 mg/dL (<200); Creatinine Clr Calc Pharmacy 130.7; Estimated Glomerular Filt Rate > 60; Glucose Random 93 mg/dL (60-115); HDL Cholesterol 35 mg/dL (>40); LDL Cholesterol Calculated 90 mg/dL (<100); Potassium 3.6 mmol/L (3.3-5.1); Sodium 141 mmol/L (135-145); Total Protein 7.6 g/dL (6.5-8.0); Triglycerides 105 mg/dL (<150)
[2024-01-06 14:17] LABS: Insulin 15 uU/mL (2-29); TSH reflex Free T4 1.03 uIU/mL (0.32-4.0)
--- NOTE | 2024-01-12 09:11 | HO.ANESPROP2 ---
Documented by User: Karla Jean Baptiste NP 01/12/24 09:12 HPI - Anesthesia Eval Consult details Narrative: 28yo F for Gastrectomy Sleeve,EGD,possible diaphragmatic hernia,possible ventral hernia,possible open, PMFSH Active Problems Active Problems: All Active Problems (Updated 01/05/24 @ 11:15 by Shira Gabriel RN) Vitamin B12 deficiency (Acute) Vitamin D deficiency (Acute) ADHD (Acute) Anxiety (Acute) Depression (Acute) Morbid obesity (Acute) Thrombosed external hemorrhoids (Acute) Polycystic ovarian syndrome (Acute) Past Medical History Medical History Back pain Migraine ADHD Anxiety Depression Morbid obesity Thrombosed external hemorrhoids Polycystic ovarian syndrome Family History Family History Mother Non-Hodgkin lymphoma Family history of problems with anesthesia: No Surgical History Surgical History Hx of esophagogastroduodenoscopy History of delivery History of wisdom tooth extraction History of Problems with Anesthesia: No Social History Social History Are you a primary personal care home administrator to a significant other at home: No Do you presently have visiting nurse or other home services: No Patient Tobacco Use Status: Former Tobacco user Quit Date: 11/29 Use of substances other than those prescribed or required for medical reasons: No Have you been hit, kicked, punched, or otherwise hurt by someone within the past year? If so, by whom?: No Advance Directives: No Advance Directives Information Provided: No Advance Directives on File: No Recently lost weight without trying: No Eating poorly because of decreased appetite: No Nutrition Risks: No Nutritional Risk Patient : No : No Poor oral hygiene: No Meds Allergies Allergy/AdvReac Type Severity Reaction Status Date / Time No Known Allergies Allergy Verified 01/13/24 06:22 Home Medications Medication Instructions Recorded Confirmed Last Taken Type bupropion HCl 300 mg 24 hr tablet, 300 mg PO QAM 10/13/23 01/05/24 Unknown History extended release lisdexamfetamine 30 mg capsule 30 mg PO DAILY 10/13/23 01/05/24 Unknown History ([place]) Exam Height,Weight and Vital Signs: Height 5 ft 5 in Weight 114.759 kg Pertinent Lab Results Pertinent Lab Results: Laboratory Tests 01/06/24 01/06/24 12:28 12:42 WBC 7.8 RBC 5.22 Hgb 14.0 Hct 43.3 MCV 83.0 MCH 26.8 L MCHC 32.3 RDW 13.8 Plt Count 254 MPV 11.5 Immature Gran % (Auto) 0.3 Neut % (Auto) 67.1 Lymph % (Auto) 21.1 [place] % (Auto) 7.0 Eos % (Auto) 4.2 H Baso % (Auto) 0.3 Lymph # (Auto) 1.7 [place] # (Auto) 0.6 Eos # (Auto) 0.3 Baso # (Auto) 0.0 Abs Immat Gran (auto) 0.02 Absolute Neuts (auto) 5.3 Absolute Nucleated RBC 0.000 Nucleated RBC % (auto) 0.0 PT 11.6 INR 1.0 APTT 30.5 Sodium 141 Potassium 3.6 Chloride 106 Carbon Dioxide 23 Anion Gap 16 BUN 8 L Creatinine 0.81 Estim Creat Clear Calc 130.7 Estimated GFR > 60 Random Glucose 93 Estimat Average Glucose 91 Hemoglobin A1c % 4.8 Insulin Level 15 Calcium 9.3 Total Bilirubin 0.6 AST 33 H ALT 90 H Alkaline Phosphatase 122 H C-Reactive Protein 2.62 H Total Protein 7.6 Albumin 3.9 Triglycerides 105 Cholesterol 146 LDL Cholesterol, Calc 90 HDL Cholesterol 35 L TSH 1.03 Blood Type A Positive Antibody Screen NEGATIVE Narrative Narrative: EKG 10/2023 Vent. Rate : 105 BPM Atrial Rate : 105 BPM P-R Int : 146 ms QRS Dur : 086 ms QT Int : 336 ms P-R-T Axes : 043 006 016 degrees QTc Int : 444 ms Sinus tachycardia Otherwise normal ECG No previous ECGs available Assessment and Plan Assessment Anesthesia Assessment: Chart Reviewed Final Anesthetic Review Family History of Problems with Anesthesia: No History of Problems with Anesthesia: No Documented by User: Carlotta Manjarrez MD 01/13/24 09:41 [facility] Active Problems Active Problems: All Active Problems (Updated 01/13/24 @ 07:15 by Carlotta Manjarrez MD) Vitamin B12 deficiency (Acute) Vitamin D deficiency (Acute) ADHD (Acute) Anxiety (Acute) Depression (Acute) Morbid obesity (Acute) BMI 41.9 Thrombosed external hemorrhoids (Acute) Polycystic ovarian syndrome (Acute) Past Medical History Medical History Back pain Migraine ADHD Anxiety Depression Morbid obesity Thrombosed external hemorrhoids Polycystic ovarian syndrome Family History Family History Mother Non-Hodgkin lymphoma Family history of problems with anesthesia: No Surgical History Surgical History Hx of esophagogastroduodenoscopy History of delivery History of wisdom tooth extraction History of Problems with Anesthesia: No Social History Social History Are you a primary personal care home administrator to a significant other at home: No Do you presently have visiting nurse or other home services: No Patient Tobacco Use Status: Former Tobacco user Quit Date: 11/29 Use of substances other than those prescribed or required for medical reasons: No Have you been hit, kicked, punched, or otherwise hurt by someone within the past year? If so, by whom?: No Advance Directives: No Advance Directives Information Provided: No Advance Directives on File: No Recently lost weight without trying: No Eating poorly because of decreased appetite: No Nutrition Risks: No Nutritional Risk Patient : No : No Poor oral hygiene: No Meds Allergies Allergy/AdvReac Type Severity Reaction Status Date / Time No Known Allergies Allergy Verified 01/13/24 06:22 Home Medications Medication Instructions Recorded Confirmed Last Taken Type bupropion HCl 300 mg 24 hr tablet, 300 mg PO QAM 10/13/23 01/05/24 Unknown History extended release lisdexamfetamine 30 mg capsule 30 mg PO DAILY 10/13/23 01/05/24 Unknown History (Perla) Exam Height,Weight and Vital Signs: Height 5 ft 5 in Weight 114.759 kg Vital Signs Temp Pulse Resp BP Pulse Ox O2 Del Method 01/13/24 06:35 98.1 F 72 18 133/67 96 Room Air Pertinent Lab Results Pertinent Lab Results: Laboratory Tests 01/06/24 01/06/24 12:28 12:42 WBC 7.8 RBC 5.22 Hgb 14.0 Hct 43.3 MCV 83.0 MCH 26.8 L MCHC 32.3 RDW 13.8 Plt Count 254 MPV 11.5 Immature Gran % (Auto) 0.3 Neut % (Auto) 67.1 Lymph % (Auto) 21.1 [place] % (Auto) 7.0 Eos % (Auto) 4.2 H Baso % (Auto) 0.3 Lymph # (Auto) 1.7 [place] # (Auto) 0.6 Eos # (Auto) 0.3 Baso # (Auto) 0.0 Abs Immat Gran (auto) 0.02 Absolute Neuts (auto) 5.3 Absolute Nucleated RBC 0.000 Nucleated RBC % (auto) 0.0 PT 11.6 INR 1.0 APTT 30.5 Sodium 141 Potassium 3.6 Chloride 106 Carbon Dioxide 23 Anion Gap 16 BUN 8 L Creatinine 0.81 Estim Creat Clear Calc 130.7 Estimated GFR > 60 Random Glucose 93 Estimat Average Glucose 91 Hemoglobin A1c % 4.8 Insulin Level 15 Calcium 9.3 Total Bilirubin 0.6 AST 33 H ALT 90 H Alkaline Phosphatase 122 H C-Reactive Protein 2.62 H Total Protein 7.6 Albumin 3.9 Triglycerides 105 Cholesterol 146 LDL Cholesterol, Calc 90 HDL Cholesterol 35 L TSH 1.03 Blood Type A Positive Antibody Screen NEGATIVE Laboratory Results - last 24 hr 01/13/24 06:00 Urine Test NEGATIVE Lab Results 01/06/24 01/06/24 01/13/24 Range/Units 12:28 12:42 06:00 WBC 7.8 (4.8-10.8) X10*3/uL RBC 5.22 (4.20-5.50) X10*6/uL Hgb 14.0 (12.0-16.0) g/dl Hct 43.3 (37.0-47.0) % MCV 83.0 (80.0-98.0) fL MCH 26.8 L (27.0-33.0) pg MCHC 32.3 (31.0-35.0) g/dl RDW 13.8 (11.0-16.0) % Plt Count 254 (160-400) X10*3/uL MPV 11.5 (9.4-12.3) fL Immature Gran % (Auto) 0.3 (0.0-0.4) % Neut % (Auto) 67.1 (45-73) % Lymph % (Auto) 21.1 (20-40) % [place] % (Auto) 7.0 (2-11) % Eos % (Auto) 4.2 H (0-4) % Baso % (Auto) 0.3 (0-2) % Lymph # (Auto) 1.7 (1.2-4.9) X10*3/uL [place] # (Auto) 0.6 (0.1-1.2) X10*3/uL Eos # (Auto) 0.3 (0.0-0.4) X10*3/uL Baso # (Auto) 0.0 (0.0-0.2) X10*3/uL Abs Immat Gran (auto) 0.02 (0.00-0.03) X10*3/uL Absolute Neuts (auto) 5.3 (2.0-8.3) x10*3/uL Absolute Nucleated RBC 0.000 (0.0-0.012) X10*3/uL Nucleated RBC % (auto) 0.0 (0.0-0.2) /100WBC PT 11.6 (11.1-13.3) SEC INR 1.0 (0.9-1.1) APTT 30.5 (26.0-36.8) SEC Sodium 141 (135-145) mmol/L Potassium 3.6 (3.3-5.1) mmol/L Chloride 106 (96-108) mmol/L Carbon Dioxide 23 (22-29) mmol/L Anion Gap 16 (12-20) BUN 8 L (9-16) mg/dL Creatinine 0.81 (0.5-1.4) mg/dL Estim Creat Clear Calc 130.7 Estimated GFR > 60 Random Glucose 93 (60-115) mg/dL Estimat Average Glucose 91 mg/dL Hemoglobin A1c % 4.8 (<6.0) % Insulin Level 15 (2-29) uU/mL Calcium 9.3 (8.4-10.2) mg/dL Total Bilirubin 0.6 (0.0-1.0) mg/dL AST 33 H (5-31) U/L ALT 90 H (0-31) U/L Alkaline Phosphatase 122 H (39-117) U/L C-Reactive Protein 2.62 H (< or = 0.50) mg/dL Total Protein 7.6 (6.5-8.0) g/dL Albumin 3.9 (3.5-5.0) g/dL Triglycerides 105 (<150) mg/dL Cholesterol 146 (<200) mg/dL LDL Cholesterol, Calc 90 (<100) mg/dL HDL Cholesterol 35 L (>40) mg/dL TSH 1.03 (0.32-4.0) uIU/mL Urine Test NEGATIVE (NEGATIVE) Blood Type A Positive Antibody Screen NEGATIVE Airway Mallampati Class: II TM Dist: >3cm Neck ROM: Full Loose/Missing/Broken Teeth: No (Denies broken, loose, missing teeth) Heart: RRR Lungs: CTAB Assessment and Plan Assessment Anesthesia Assessment: Anesthesia Plan Discussed and Chart Reviewed Final Anesthetic Review Family History of Problems with Anesthesia: No History of Problems with Anesthesia: No NPO: Yes ASA Class: III Final Preanesthetic Review: No Changes in Pt Med Stat, Meds/Allgs Chart Reviewed, Consent Obtained/Reviewed and Anes Risks/Benef Reviewed Patient Risk: Intermediate Procedure Risk: Intermediate Assessment/Block/Sedation in SS: Assess/Block/Sedation-SS Anesthetic Plan Anesthetic Plan: GA Disposition: Standard PACU and Inp. Admit - Standard Bed
[2024-01-13] VITALS (19 sets, daily range): BP systolic 126–146; BP diastolic 63–83; PULSE 56–94; RESP 13–21; TEMP 36.1–36.7; O2SAT 96–100; BMI 41.9; BMI 44.4
[2024-01-13] MEDS: Lactated Ringers 1,000 ML 999 ML IV (06:26)
[2024-01-13] MEDS: Lactated Ringers 1,000 ML 100 ML IVCONT ×3 (06:26→21:37)
[2024-01-13] MEDS: Aprepitant 32 MG/4.4 ML VIAL IVPUSH (06:41)
[2024-01-13 07:15] LABS: UPreg QC Valid YES; Urine Pregnancy NEGATIVE (NEGATIVE)
--- NOTE | 2024-01-13 07:32 | MHC.SHP ---
Pre-Procedural Eval Section A - 24 Hr Update-Section A only Date of Service: 01/13/24 The patient is an INPATIENT: Yes The patient has been examined within 24 hours of the surgical procedure. The History & Physical has been completed within 30 days and I have reviewed it.: Yes Section B - Complete if H&P > 30 days Chief Complaint: morbid obesity Relevant Family History (Specify if Yes): No Relevant Social History: None Present Medications: None Medical History: No relevant PMH History of Previous Operations: No relevant previous surgery Allergies: Allergies Allergy/AdvReac Type Severity Reaction Status Date / Time No Known Allergies Allergy Verified 01/13/24 06:22 Review of Systems Sugical H&P ROS: Negative: Constitution, Cardiovascular, Respiratory, Neurological, Psychiatric, Hem-Onc, Allergic/Immunologic, Gastrointestinal, Genitourinary, Musculoskeletal, Integumentary, Endocrine and Eyes/Ears/Nose/Throat Exam Surgical H&P Exam: Normal: HEENT, Normal: Heart, Normal: Lungs, Normal: Extremities, Normal: Abdomen, Normal: Skin and Normal: Neurological Plan Diagnosis/Plan: Unchanged I have reviewed the history and physical and performed a pertinent physical examination on my patient. No changes have occurred unless specified. Time Spent With Patient Time: Total time managing care of this patient today ____ minutes.
--- NOTE | 2024-01-13 07:47 | P.BOP_ITS ---
Brief Operative Note Date of Service: 01/13/24 Pre-op diagnosis: Morbid obesity with comorbidities (see below) Post-op diagnosis: same Procedure: INITIAL PATIENT BMI ON PRESENTATION AT OUR OFFICE: 47.2 kg/m2 LAST BMI BEFORE SURGERY: 42.4 kg/m2 COMORBIDITIES: PCOS, depression, anxiety, liver steatosis, ADHD ?The patient presented to the Weight Management Program with significant obesity that was negatively impacting the patient's comorbidities as listed above.? The program is a phased program with a special focus on preoperative medical weight management to promote substantial weight loss and prepare the patients for the second phase of the program: bariatric surgery. The patient participated in an intensive weekly lifestyle ?intervention and exercise program during which the patient ?has lost between the initial office visit and the last preoperative visit 29.4lbs, or 10.36% of initial actual body weight. It was deemed appropriate for the patient to now have bariatric surgery. In light of the current Covid-19 pandemic and the well documented strong association of obesity and increased risk of worse outcomes if infected with Covid-19 (REFERENCES: https://pubmed.ncbi.nlm.nih.gov/77648713/ ,? https://pubmed.ncbi.nlm.nih.gov/79157999/ ), any delay in undergoing bariatric surgery may lead to the patient's worsening health condition and increased?risk of more severe Covid-19 disease if infected. In addition a recent?study from [facility] published in [facility] on 11/10/2021 ([email or web address]) found that, among patients with obesity, substantial weight loss achieved with surgery was associated with improved outcomes of COVID-19 infection. The findings suggest that obesity can be a modifiable risk factor for the severity of COVID-19 infection. In addition, the patient met the BMI-criteria for bariatric surgery based on the BMI on initial presentation. The patient should not be penalized for achieving such weight loss because ?it is not sustainable long-term without surgical intervention and it was achieved in preparation for bariatric surgery ?under my direction and based on my published research ([email or web address]).[email or web address] and? https://www.soard.org/article/[email or web address](41)33728-X/pdf ) ?that a 10% preoperative weight loss improves long-term weight loss after surgery and reduces perioperative complications.? Insurance carriers such as [facility] have endorsed my recommendations ?and have included in their policies criteria to inc lude a 10% preoperative weight loss requirement. PROCEDURE: Esophago-gastroscopy, laparoscopic sleeve gastrectomy and laparoscopic gastropexy INDICATIONS: This is a 28 year-old female who was electively scheduled for laparoscopic, possibly open sleeve gastrectomy. The risks and complications of the procedure were discussed with the patient in advance, particularly the possibility of ; pulmonary embolism; staple line leak; bleeding; GERD; cardiac, pulmonary, or renal complications; as well as long-term problems such as insufficient weight loss, vitamin deficiency, strictures, or ulcers. The patient understood all the risks, and was in agreement to proceed with surgery. DESCRIPTION OF PROCEDURE: After informed consent was obtained from the patient, the patient was given preoperative antibiotics, and was transferred to the operating room. After successful induction of general anesthesia, pneumatic compression devices were placed on both lower extremities. An upper endoscopy was performed next. The oropharynx and esophagus appeared to be within normal limits. There was no diaphragmatic hernia present consistent with the findings of the preoperative upper GI. The stomach was entered. Then after all fluid and air were suctioned and the stomach was fully decompressed, the scope was withdrawn and secured in the mid esophagus. The patient was then prepped and draped in the usual sterile manner, and abdominal access was established at the right upper quadrant with the Kieran technique. A 12 mm blunt port was inserted, and the abdomen was insufflated with CO2 to a pressure of 15 mmHg. Under direct visualization, additional ports were placed, specifically two 5 mm Versi-step ports to the left upper quadrant, and a 5 mm Versi-Step port to the right upper quadrant. 1% lidocaine plain was used to infiltrate all port sites as well as all fascia defects. ? PLEASE REVIEW BEFORE TO INCLUDE THIS SENTENCE: Using the EndoClose suture passer device, I placed a #1 Polysorb tie across the falciform ligament in order to retract it up against the abdominal wall and prevent injury of the ligament with our instruments during the procedure. Following that, the patient was placed in a steep reverse Trendelenburg position. An additional 5 mm port was placed to the right flank for the Mediflex retractor that was used to retract the left lobe of the liver. The gastro-esophageal fat pad was opened with the ultrasonic device (Thunderbeat, Olympus) and the anterior esophagus and hiatus were exposed. The angle of His was opened with the ultrasonic device the fundus of the stomach from any diaphragmatic and splenic attachments. I then opened the gastrocolic ligament between the transverse colon and the greater curvature of the stomach with the ultrasonic device to enter the lesser sac and facilitate the ligation of the short gastric vessels. I started at a mid-point along the greater curvature and using the Thunderbeat, all short gastric vessels were divided all the way to the angle of His until the left dorothy was completely dissected at its entirety. I then divided the gastro-colic ligament distally to a distance of about 3-4 cm proximal to the pylorus. The stomach was then divided transversely with two Endo KENNEDY-45 purple and four KENNEDY-60 articulating purple loads using the AEON stapler and loads. Every effort was made that the gastric sleeve had a tubular shape and an even caliber throughout. Once the sleeve resection was completed, the staple line of the gastric sleeve was reinforced with Hemoclips. The resected stomach was retrieved without difficulty from the Kieran port. A gastropexy was then performed in order to prevent postoperative GERD and partial gastric volvulus. Several interrupted 2.0 Surgidac sutures were placed between the sleeve's staple line and the previously divided greater omentum and gastro-colic ligament using the Endo-Stitch device. ?An upper endoscopy was performed. There was no narrowing at the GE junction. The scope was easily advanced all the way to the pylorus which was clearly visualized. There was no narrowing anywhere and the sleeve's caliber was even throughout. The sleeve's staple line was inspected and there was no evidence of ischemia, bleeding or dehiscence. At that point the gastroscope was withdrawn from the patient?s mouth while we were decompressing the bowel and the stomach from any remaining air. I looked into the lesser sac to see how the sleeve was situating and it was situating well. There was no bleeding from the staple line, spleen, or short gastric vessels. The Mediflex retractor was removed, and the undersurface of the liver was inspected and there was no bleeding. The patient was placed in supine position. I closed the fascial defect of the 12 mm port site with a figure of eight #1 Polysorb suture. Then 30cc Ropivacaine plain with 10 mg of Dexamethasone were used to infiltrate the fascial closure as well as all skin incisions. A total of 7ml Zynrelef was applied in the Kieran wound. At this point, the abdomen was deflated, all ports were removed under direct vision, and no bleeding was noted from any of the port sites. The skin incisions were irrigated with saline and were closed with 4-0 absorbable monofilament sutures. Steri-Strips and OpSites were used to cover all incisions. The patient was extubated and was transferred in stable condition to the recovery room for further care. I was present and performed all felix parts of the procedure. Mr. Camarillo was the operations administrative assistant. There were no residents to assist with this case. Mc Ferguson MD, PhD, FACS Surgeon: Kurtis Ferguson MD Anesthesia: GETA, local and other (TAP block & 7ml Zynrelef) Was an Board Handler used for this Procedure?: No Board Handler: Elroy Camarillo Estimated blood loss (mL): 10 IV fluids (mL): 2,500 Urine output (mL): 0 (No Hayward to record output) Pathology: other (Stomach) Condition: stable Disposition: PACU
--- NOTE | 2024-01-13 07:49 | P.PNGS_ITS ---
Subjective Subjective Date of Service: 01/14/24 Interval history: Feels well. Mild incisional pain. She is tolerating phase 1 bariatric diet Physical Exam 2 Vital Signs: Vital Signs: Last Vital Signs Temp 98.1 F 01/13/24 06:35 Pulse 72 01/13/24 06:35 Resp 18 01/13/24 06:35 BP 133/67 01/13/24 06:35 Pulse Ox 96 01/13/24 06:35 O2 Del Method Room Air 01/13/24 06:35 BMI result Body Mass Index 41.9 GI: Inspection: Yes normal to inspection, Yes incision (clean, dry and intact) and Yes obesity Palpation (GI): Soft to palpation Extrem: Right lower extremity: normal to inspection (no calf tenderness) L eft lower extremity: normal to inspection (no calf tenderness) Objective Data Active Medications Lactated Ringer's (Lr) 1,000 mls @ 100 mls/hr IVCONT .Q10H [facility] Last Admin: 01/13/24 06:26 Dose: 100 mls/hr Documented By: ERNIE Lactated Ringer's (Lr) 1,000 mls @ 999 mls/hr IV .Q1H1M [facility] Stop: 01/13/24 08:00 Last Admin: 01/13/24 06:26 Dose: 999 mls/hr Documented By: ERNIE Labs 01/14/24 05:42 01/14/24 05:42 Labs: Laboratory Results - last 24 hr 01/13/24 06:00 Urine Test NEGATIVE Procedures Date of Service Date of Service: 01/14/24 Progress Note: A&P Assessment and plan (1) Morbid obesity: Status: Acute Assessment and Plan: s/p laparoscopic sleeve gastrectomy and gastropexy Doing well Will check am labs and if OK the patient will be discharged home (2) Polycystic ovarian syndrome: Status: Acute (3) Depression: Status: Acute (4) Anxiety: Status: Acute (5) ADHD: Status: Acute (6) Steatosis, liver: Status: Acute (7) S/P laparoscopic sleeve gastrectomy: Status: Acute Time Spent With Patient Time: Total time managing care of this patient today ____ minutes. Quality Stroke Does the patient have a stroke diagnosis?: No VTE Prior VTE?: No VTE Risk Level:: Surgical - moderate VTE Device Contraindication: N/A - Device Ordered VTE Drug Contraindication: Treatment Not Indicated
--- NOTE | 2024-01-13 10:12 | PM.DS ---
DS: Providers Provider Date of Service: 01/14/24 Date of admission: 01/13/24 06:00 Primary care physician: Unknown Physician DS: Diagnosis Discharge Diagnosis (1) Morbid obesity: Status: Acute (2) Polycystic ovarian syndrome: Status: Acute (3) Depression: Status: Acute (4) Anxiety: Status: Acute (5) ADHD: Status: Acute (6) Steatosis, liver: Status: Acute DS: Summary Hospital Course Hospital Course: ADMITTING DIAGNOSIS: morbid obesity, adhd, anxiety, depression ? DISCHARGE DIAGNOSIS: same, s/p laparoscopic sleeve gastrectomy ? PAST SURGICAL HISTORY: C section ? PROCEDURE: upper endoscopy, laparoscopic sleeve gastrectomy ? DISCHARGE SUMMARY: ? History of Present Illness: ? The patient is a?28 year-old woman with a BMI of?47.2 kg/m2 and associated co-morbidities as described above. The patient had extensive work-up,lost?31.5 lbs preoperatively and was electively scheduled for laparoscopic, possible open sleeve gastrectomy and gastropexy. Risks and complications of the surgery were discussed with the patient in advance, particularly the possibility of , pulmonary embolism, anastomotic leak, bleeding, bowel injury, GERD, cardiac, renal or pulmonary complications. The patient understood all the risks and was in agreement with the surgical plan. ? Hospital Course: ? The patient underwent an uneventful laparoscopic sleeve gastrectomy with gastropexy on the day of admission. Postoperatively, the patient was transferred to the surgical floor. The patient received IV Acetaminophen and IV dilaudid for pain control. Patient was started on bariatric phase 1 diet POD #0. On postoperative day one, the patient was feeling well without nausea, vomiting, fevers, or tachycardia. The patient had some mild incisional pain and the abdomen was soft. ? On the morning of postoperative day one, the patient was continued on 1 ounce of water or ice every half hour. During the day, the patient did fairly well, having some incisional pain, but able to ambulate adequately and to tolerate liquids well. ? Since the patient is doing well, we decided that the patient was ready to be discharged. The patient was given instructions to follow-up with me next week and to call my office for any fever over 101, persistent abdominal pain, nausea, vomiting, GERD, symptoms of DVT such as calf tenderness, or leg swelling, or pulmonary embolism such as chest pain or shortness of breath. The patient was also instructed to drink 40-60 ounces of liquids per day using the 1-ounce cups. The patient had been given prescriptions for Tylenol for pain, Zofran prn for nausea, and pantoprazole and carafate previously. The patient was encouraged to ambulate and use the incentive spirometer. The patient was allowed to shower, but no baths, and encouraged to stay active at home. All of these instructions were given to the patient personally. All questions were answered and the patient understood all instructions, the instructions were also given to the patient in print. Time Attestation Discharge coordination time: Less than 30 minutes Quality: Safe Use of Opioids Does Pt have an Active Cancer Diagnosis on the Problem List?: No Quality: Stroke Does the patient have a stroke diagnosis?: No Physical Exam Vital Signs: Vital Signs: Last Vital Signs Temp 98.1 F 01/13/24 06:35 Pulse 72 01/13/24 06:35 Resp 18 01/13/24 06:35 BP 133/67 01/13/24 06:35 Pulse Ox 96 01/13/24 06:35 O2 Del Method Room Air 01/13/24 06:35 BMI result Body Mass Index 41.9 DS: Data Data Completed and Pending Pending studies at discharge: Pending at discharge 01/13/24 09:12 Surgical [PTH] Routine Labs on day of discharge: Laboratory Results - last 24 hr 01/13/24 06:00 Urine Test NEGATIVE Discharge Plan Discharge Anticipated Discharge Date/Time: 01/14/24 10:00 Patient Disposition: Home, Self-Care Discharge Diagnosis: s/p laparoscopic sleeve gastrectomy Referrals: Physician,Unknown J [Primary Care Provider] - 1 Week Discharge Medications: Continued albuterol sulfate 90 mcg/actuation Hfa Aerosol Inhaler 2 puff INHALATION Q6H PRN (Reason: Wheezing) pantoprazole 40 mg tablet,delayed release (DR/EC) 40 mg PO DAILY Qty: 90 0RF sucralfate 100 mg/mL suspension 10 ml PO BID Qty: 600 2RF ondansetron 4 mg tablet,disintegrating 4 mg PO Q12H Qty: 20 0RF Rx Instructions: Only take one every 12 hours as needed if you have nausea bupropion HCl 300 mg tablet extended release 24 hr 300 mg PO QAM lisdexamfetamine [Vyvanse] 30 mg capsule 30 mg PO DAILY Discontinued cholecalciferol (vitamin D3) 125 mcg (5,000 unit) capsule 125 mcg PO DAILY Qty: 30 2RF mecobalamin (vitamin B12) 1,000 mcg tablet,disintegrating 1,000 mcg sublingual DAILY Qty: 30 2RF Rx Instructions: place tablet under tongue and allow to dissolve for at least30 secs before swallowing polyethylene glycol 3350 [Miralax] 17 gram powder in packet 17 g PO DAILY Qty: 14 0RF Rx Instructions: Mix each packet with 8oz of water, Crystal light, or Gatorade zero, or Propel and do 7 packets on 01/11/24 and another 7 packets on 01/12/24 Discharge Orders: Discharge Order (Routine); Ordered 01/14/24 Ordered By: Kurtis Ferguson Activity on Discharge: No heavy lifting Stand Alone Forms: Patient Portal Discharge page Care Plan Goals: weight loss Health Concerns: morbid obesity Plan of Treatment: No tub baths, sex or returning to work until discussed at first post op appointment. No exercise, alcohol, tobacco or illegal drug use. Continue to use incentive spirometer hourly while awake. Walk in home for 5- 10 minutes every 2 hours during the first week. Follow all instructions in the bariatric handbook and call with any questions.Discharge Instructions 1. Please call your doctor or come back to the emergency room should any new symptoms arise. 2. You will receive a courtesy call from [facility] 24-48 hours after discharge. 3. Activity: abstain from alcohol, practice limited stair climbing, no bending, no driving, no exercise, no illicit substances, no lifting, no sex, no tub bath, no work. 4. Diet: continue as discussed with Dr. Ferguson. 5. Dressing Change/Wound Care: Your incision is covered by clear bandages and guaze underneath. If the area is tender, you may apply an ice pack for short intervals (no more than 20 minutes on, followed by at least 20 minutes off). Do not apply heat. Do not use creams, lotions, or topical antibiotics unless instructed to do so by your surgeon. These can cause infection or allergic reaction. 6. Call your doctor if: - Your temperature exceeds 101.5 F - You experience excessive pain or swelling - You have an unexpected reaction to medication - You have excessive bleeding - You experience continued vomiting/nausea - Your incision begins to separate - Your incision shows signs of infection such as increased redness, swelling, excessive pain, heat, or drainage (light blood or clear fluid is normal) 7. General instructions: No lifting greater than 5 lbs for 1 week and not more than 20lbs the next 3?weeks. No driving until seen at the office in 5-7 days after surgery. If you do not move your bowels in the next 2 days, please tell?Dr. Ferguson. Please walk around your home every hour or two to prevent blood clots from forming in your legs. You do not need to wake from sleeping to walk. Please sleep in a bed or couch to prevent kinking at the hips and knees. Please take your incentive spirometer (your lung compliance mgr) home with you and use it for the next few days to prevent pneumonia. You may shower, no hot tubs, baths or swimming pools.?Please follow the post op diet instructions you are?given by Dr Ferguson? and text me daily at 5-6pm for an update.?If you have any issues or concerns or questions please communicate this to him via text.? The Celebrate shakes have all of the bariatric vitamins you need if you consume these shakes. If you are drinking other protein shakes, you will need to purchase the Celebrate multivitamins and calcium that are available in the hospital gift shop on the first floor of the main hospital.??Do not take anything without first discussing with Dr Ferguson. Please make sure you are consuming at least 40 ounces of fluids per day starting the?day AFTER your discharge from the hospital. Always drink 1-2 ml per minute using the 5ml?syringe. If you drink faster you may experience?bloating,?gas pain, burping, nausea or heartburn. In that case please slow down your pace and use the syringe to?understand better the?proper?pace and volume of drinking. Do not hesitate to contact the office with any questions at . The patient's medical history has been reviewed and they are considered low risk for post op DVT and therefore DVT prophylaxis is not considered necessary. Travel after surgery was reviewed. The patient has not disclosed any travel plans during the first 30 days after surgery and they have been advised that within the first 30 days after surgery any bus, plane, train or car travel over 2 hours in duration is contraindicated due to the possibility of developing blood clots from immobility. Any travel, needs to include periods of ambulation of 10 minutes in duration every 2 hours.? The patient was instructed to discuss any plans for travel during this period with their bariatric surgeon. Assessment: stable s/p laparoscopic sleeve gastrectomy Discharge Date/Time: 01/14/24 08:35
[2024-01-13] MEDS: fentaNYL citrate/PF 100 MCG/2 ML VIAL 25 MCG IVPUSH ×4 (10:25→10:48)
[2024-01-13 10:44] LABS: Hematocrit 38.9 % (37.0-47.0); Hemoglobin 12.8 g/dl (12.0-16.0)
[2024-01-13 10:57] LABS: Anion Gap 16 (12-20); Blood Urea Nitrogen 6 mg/dL (9-16); Calcium 8.5 mg/dL (8.4-10.2); Carbon Dioxide 22 mmol/L (22-29); Chloride 104 mmol/L (96-108); Creatinine Clr Calc Pharmacy 132.1; Estimated Glomerular Filt Rate > 60; Glucose Random 125 mg/dL (60-115); Potassium 3.9 mmol/L (3.3-5.1); Sodium 138 mmol/L (135-145)
--- NOTE | 2024-01-13 11:45 | PC.NURSE ---
Pt received from PACU . Oriented to room and call john system. Abd lap sites x 5 CDI binder in use , routine post op care
--- NOTE | 2024-01-13 13:15 | PC.NURSE ---
Pt oob to BR voding w/o difficulty. Ambulated in hallway initiated Phase I diet
--- NOTE | 2024-01-13 14:10 | PHA.MEDREC ---
Pharmacy Consult ? Medication Reconciliation Pharmacy has completed the medication reconciliation. Used patient's claim history and spoke with patient.
[2024-01-13] MEDS: ceFAZolin Sodium/Dextrose,Iso 2 GM/50 ML PIGGYBACK IV (14:43)
[2024-01-13] MEDS: Acetaminophen 1,000 MG/100 ML PIGGYBACK 16.7 MG IV ×2 (14:44→20:00)
[2024-01-13] MEDS: Famotidine/PF 20 MG/2 ML VIAL IVPUSH (20:01)
[2024-01-14] MEDS: Acetaminophen 1,000 MG/100 ML PIGGYBACK 16.7 MG IV (02:14)
[2024-01-14 03:38] VITALS: BP 127/69; PULSE 65; RESP 18; TEMP 36.2; O2SAT 96
[2024-01-14 06:09] LABS: MANUAL DIFF FLAG NO
[2024-01-14 06:13] LABS: Basophils Percent Auto 0.1 % (0-2); Eosinophils Percent Auto 0.1 % (0-4); Hematocrit 39.5 % (37.0-47.0); Imm Gran Abs Auto 0.06 X10*3/uL (0.00-0.03); Imm Gran Pct Auto 0.4 % (0.0-0.4); Lymphocytes Absolute Auto 1.7 X10*3/uL (1.2-4.9); Lymphocytes Percent Auto 11.9 % (20-40); Mean Corpuscular HGB Conc 32.9 g/dl (31.0-35.0); Mean Corpuscular Hemoglobin 27.4 pg (27.0-33.0); Mean Corpuscular Volume 83.3 fL (80.0-98.0); Mean Platelet Volume 11.9 fL (9.4-12.3); Neutrophils Absolute Auto 11.6 x10*3/uL (2.0-8.3); Neutrophils Percent Auto 80.5 % (45-73); Platelet Count 231 X10*3/uL (160-400); Red Blood Count 4.74 X10*6/uL (4.20-5.50); Red Cell Distribution Width 13.6 % (11.0-16.0); White Blood Count 14.4 X10*3/uL (4.8-10.8)
[2024-01-14 06:26] LABS: Anion Gap 17 (12-20); Blood Urea Nitrogen 6 mg/dL (9-16); Calcium 8.9 mg/dL (8.4-10.2); Carbon Dioxide 20 mmol/L (22-29); Chloride 107 mmol/L (96-108); Creatinine Clr Calc Pharmacy 151.6; Estimated Glomerular Filt Rate > 60; Glucose Random 76 mg/dL (60-115); Sodium 140 mmol/L (135-145)
[2024-01-14 07:27] VITALS: BP 127/63; PULSE 59; RESP 18; TEMP 36.4; O2SAT 97
[2024-01-14] MEDS: Famotidine/PF 20 MG/2 ML VIAL IVPUSH (08:01)
--- NOTE | 2024-01-14 08:57 | MHC.CM.PN ---
PT DISCHARGED PRIOR TO BEING SEEN BY CM HOME WITH NO SERVICES VIA PRIVATE TRANSPORT
--- NOTE | 2024-01-14 15:03 | HO.POSTANES ---
Post Anesthesia Evaluation Post Anesthesia Evaluation Date of Service: 01/14/24 Vital Signs: Vital Signs Temp Pulse Resp BP Pulse Ox O2 Del Method 01/14/24 07:27 97.5 F 59 18 127/63 97 Room Air 01/14/24 03:38 97.2 F 65 18 127/69 96 Room Air Anesthesia: General Endotracheal-GETA Mental Status: Awake Pain Control: Satisfactory Nausea/Vomiting: None Hydration: Adequate Anesthesia-Related Issues: No Anes. Related Issues
== END 2024-01-14 08:35 | disposition home or self-care (01) | DRG 403 ==
LOC: HO.SSSA 10:23 → HO.S3 11:05
PROVIDERS: Nurse Practitioner; Physician Assistant Surgical; Admitting Provider Surgery; Visit Provider Surgery
PROC: 0DB64Z3 Excision of Stomach, Percutaneous Endoscopic Approach, Vertical (ICD-10-PCS; CPT 43845; principal; 2024-01-13 07:30)
DX: E66.01 Morbid (severe) obesity due to excess calories (principal); K76.0 Fatty (change of) liver, not elsewhere classified; E28.2 Polycystic ovarian syndrome; F41.9 Anxiety disorder, unspecified; F90.9 Attention-deficit hyperactivity disorder, unspecified type; Z68.41 Body mass index [BMI] 40.0-44.9, adult; F32.A Depression, unspecified; Z87.891 Personal history of nicotine dependence; Z79.899 Other long term (current) drug therapy
CPT/HCPCS: 36415; 80048; 80053; 80061; 81025; 83036; 83525; 84443; 85014; 85018; 85025; 85610; 85730; 86140; 86850; 86900; 86901; 88304; 88305; 88307; 88342; A4649; C9088; C9145; J0131; J0690; J1100; J1170; J2250; J2371; J2405; J2704; J2795; J3010; J7120

== ENCOUNTER → 2024-01-13 06:00 | Outpatient (BNV) | payer OTHER, SELFPAY | PROVIDERS: Admitting Provider Surgery; Visit Provider Surgery | DX: E66.01 Morbid (severe) obesity due to excess calories (principal); Z68.41 Body mass index [BMI] 40.0-44.9, adult; Z90.3 Acquired absence of stomach [part of]; Z98.84 Bariatric surgery status | CPT/HCPCS: 43659; 43775; 99024 ==

== ENCOUNTER 2024-01-18 10:29 | Outpatient (AMB) | payer OTHER, SELFPAY ==
--- NOTE | 2024-01-18 10:45 | MHC.OFFVISWM ---
Intake VS Expanded 01/18/24 11:13 BP 121/61 Blood Pressure Location Rt brachial Blood Pressure Position Sitting Pulse 64 Pulse Source Pulse Oximeter Temp 97.6 F Temperature Source Temporal Artery Scan Pulse Oximetry 99 Oxygen Delivery Method Room Air Height 5 ft 5 in Weight 243 lb 12.8 oz BMI 40.6 Body Fat % 45.8 Body Fat Mass 111.6 Fat Free Mass 132.0 Visceral Fat Rating 11.0 Body Water % 39.0 Body Water Mass 95.0 Muscle Mass/Score 125.4 Basal Metabolic Rate/Score 1,898 Intake Visit Reasons: (OV) PO LSG 01/13/24 [place] Required: No Allergies No Known Allergies Allergy (Verified 01/18/24 11:01) Medication List - Last Reconciled 01/18/24 by KARLY Dowell albuterol sulfate 90 mcg/actuation 2 puffs inhalation Q6H PRN bupropion HCl 300 mg PO QAM lisdexamfetamine (Vyvanse) 30 mg PO DAILY pantoprazole 40 mg PO DAILY sucralfate 10 mL PO BID HPI HPI Comments History of Present Illness Details Very pleasant 28-year-old female returns to the office today in follow-up. She is 5 days status post laparoscopic sleeve gastrectomy performed by Dr. Ferguson on 01/13/2024. She is tolerating 3 celebrate 4 in 1 protein shakes with 1 scoop each although this will likely be increased to 4 shakes per day. She is tolerating 40-50 oz of fluid and has moved her bowels. She denies any significant pain. [facility] Medical History Back pain Migraine ADHD Anxiety Depression Morbid obesity Thrombosed external hemorrhoids Polycystic ovarian syndrome Surgical History (Updated 01/18/24 @ 11:16 by Tressa Laguna CMA) S/P laparoscopic sleeve gastrectomy Hx of esophagogastroduodenoscopy History of delivery History of wisdom tooth extraction Family History Mother Non-Hodgkin lymphoma Social History Household Members: Significant Other Housing: House Are you a primary primary care md to a significant other at home: No Do you presently have visiting nurse or other home services: No Patient Tobacco Use Status: Former Tobacco user Quit Date: 11/29 Substance Use Type: Marijuana Physical Exam Vital Signs: Last Vital Signs Temp 97.6 F 01/18/24 11:13 Pulse 64 01/18/24 11:13 BP 121/61 01/18/24 11:13 Pulse Ox 99 01/18/24 11:13 Oxygen Delivery Method Room Air 01/18/24 11:13 BMI result Body Mass Index 40.6 GI Inspection: Yes incision (mild ecchymosis, c/d/i) Assessment & Plan Assessment & Plan (1) S/P laparoscopic sleeve gastrectomy: Code(s): Z98.84 - Bariatric surgery status Plan: POD 5 s/p LSG on 01/13/[address] Ferguson Weight loss prior to surgery was 31.5 pounds or 11% TBWL. Original weight on 10/13/2023 was 283.8 pounds and op weight was 252.3 pounds. Be sure to text Dr Ferguson exactly 1 week after surgery your weight from your home scale so he can adjust your meal plan. Continue meal plan until f/u w Lisbet in 2 weeks May shower, no submersion in bath for another week Continue abdominal binder with activity and exercise for the next 2 weeks. Exercise prior to surgery was Treadmill, may resume No abdominal exercises for 6 weeks post operatively Will be emailed link to post op video for review Reminded of the pace of drinking, 2 mL per minute, 1 oz/15 min. Coding Level of Care Code Global (67173) Diagnoses S/P laparoscopic sleeve gastrectomy Z98.84
[2024-01-18 11:13] VITALS: BP 121/61; PULSE 64; TEMP 36.4; O2SAT 99; BMI 40.6
== END 2024-01-18 11:58 | disposition home or self-care (01) ==
PROVIDERS: Visit Provider Physician Assistant Surgical
DX: Z98.84 Bariatric surgery status (principal)
CPT/HCPCS: 99024

== ENCOUNTER → 2024-01-18 10:29 | Outpatient (BNVA) | payer OTHER, SELFPAY | PROVIDERS: Visit Provider Physician Assistant Surgical | DX: Z98.84 Bariatric surgery status (principal) | CPT/HCPCS: 99212 ==

== ENCOUNTER 2024-02-01 11:46 | Outpatient (AMB) | payer OTHER, SELFPAY ==
--- NOTE | 2024-02-01 11:39 | A.OFFVIS_ITS ---
Intake VS Expanded 02/01/24 11:54 Height 5 ft 5 in Weight 233 lb BMI 38.8 Intake Visit Reasons: (TV) PO LSG 01/13/24 Allergies No Known Allergies Allergy (Verified 01/18/24 11:01) Medication List - Last Reconciled 02/01/24 by KARLY Blackwell albuterol sulfate 90 mcg/actuation 2 puffs inhalation Q6H PRN bupropion HCl 300 mg PO QAM lisdexamfetamine (Vyvanse) 30 mg PO DAILY pantoprazole 40 mg PO DAILY sucralfate 10 mL PO BID HPI HPI Comments History of Present Illness Details This?is a?28?yo female who is s/p LSG 01/13/2024. Presents for 3 week post op visit. 10lb weight loss since last visit. No complaints of nausea, emesis, abdominal pain or reflux, or constipation. Present meal plan includes: 8-10am Celebrate 2 scoops in 8am 11am-1pm Celebrate 2 scoops 2-4pm Rebuild 1 scoop 6-9pm Celebrate bar Exercise routine includes: going to gym 3-4x/week, treadmill for 500-600cal each time [facility] Medical History (Updated 02/01/24 @ 11:57 by KARLY Blackwell) Back pain Migraine ADHD Anxiety Depression Morbid obesity Thrombosed external hemorrhoids Polycystic ovarian syndrome Surgical History (Updated 01/22/24 @ 00:02 by Rachel Burton) S/P laparoscopic sleeve gastrectomy Hx of esophagogastroduodenoscopy History of delivery History of wisdom tooth extraction Family History Mother Non-Hodgkin lymphoma Social History Household Members: Significant Other Housing: House Are you a primary laboratory animal caretaker to a significant other at home: No Do you presently have visiting nurse or other home services: No Patient Tobacco Use Status: Former Tobacco user Quit Date: 11/29 Substance Use Type: Marijuana Assessment & Plan Assessment & Plan (1) S/P laparoscopic sleeve gastrectomy: Code(s): Z98.84 - Bariatric surgery status (2) Obesity: Code(s): E66.9 - Obesity, unspecified Plan New plan: 8-10am Isopure 1 scoop in 8oz water 11am-1pm Isopure 1 scoop in 8oz water 2-4pm Isopure 1 scoop in 8oz water 6-9pm Celebrate bar Texted pt a photo of Isopure, can use flavored or unflavored. Start MVI. Continue exercise 2000 lavern/week. No heavy lifting until 6w postop. Continue PPI and carafate. RTC 2 weeks. Encouraged pt to text me between visits with any questions. Patient is obese and is not considered stable at this time. I spent a total of 30 minutes reviewing/updating records, examining the patient and counseling the patient on weight management as detailed above. Telehealth Telehealth Location of provider rendering services: practice address Location of patient: address on file Patient Identification confirmed using: Name, : Yes Telehealth method: voice only Patient verbally consented to treatment: Yes Patient verbally consented to billing insurance company: Yes Patient informed of any privacy concerns related to visit: Yes Minutes spent on Phone/Video with Pt.: 18 Coding Level of Care Code Tele Est Pt Level 4 (42014) Diagnoses S/P laparoscopic sleeve gastrectomy Z98.84 Obesity E66.9
[2024-02-01 11:54] VITALS: BMI 38.8
== END 2024-02-01 12:05 | disposition home or self-care (01) ==
LOC: HO.HBS 11:46
PROVIDERS: Visit Provider Physician Assistant Surgical
DX: E66.9 Obesity, unspecified (principal); Z68.28 Body mass index [BMI] 28.0-28.9, adult; Z90.3 Acquired absence of stomach [part of]; Z98.84 Bariatric surgery status
CPT/HCPCS: 99024

== ENCOUNTER → 2024-02-01 11:46 | Outpatient (BNVA) | payer OTHER, SELFPAY | PROVIDERS: Visit Provider Physician Assistant Surgical ==

== ENCOUNTER → 2024-02-17 11:05 | Outpatient (BNVA) | payer OTHER, SELFPAY | PROVIDERS: Visit Provider Physician Assistant Surgical ==

== ENCOUNTER 2024-03-16 12:22 | Outpatient (AMB) | payer OTHER, SELFPAY ==
--- NOTE | 2024-03-16 12:15 | MHC.OFFVISWM ---
VS Expanded 03/16/24 12:19 Height 5 ft 5 in Weight 210 lb BMI 34.9 Intake Visit Reasons: TELEPHONE PO LSG 01/13/24 Allergies No Known Allergies Allergy (Verified 01/18/24 11:01) Medication List - Last Reconciled 03/16/24 by KARLY Blackwell albuterol sulfate 90 mcg/actuation 2 puffs inhalation Q6H PRN bupropion HCl XL 300 mg PO QAM lisdexamfetamine (Vyvanse) 30 mg PO DAILY pantoprazole 40 mg PO DAILY sucralfate 10 mL PO BID HPI Comments Details: This?is a?28?yo female who is s/p LSG 01/13/2024. Presents for 2 month post op visit. Weight at last visit on 02/01/2024 was 233 pounds with a BMI of 38.8, weight today is 210 pounds, representing a 23 pound weight loss with a BMI today of 34.9.? No complaints of nausea, emesis, abdominal pain or reflux, or constipation. Pt reports a rough couple of weeks with mental health. Thought she had a cyst starting due to back pain (PCOS). Present meal plan includes: 8-10am Isopure 1/2 scoop in 8oz water 11am-1pm Celebrate bar 2-4pm Isopure 1 scoop in 8oz water 5pm dinner- 4 forks protein, 4 forks veg 7-9pm Slimfast or Isopure shake staying hydrated occasionally uses slimfast high protein shake (20g) Exercise routine includes: going to gym 3-4x/week, treadmill for 500-600cal each time has a treadmill at home but hasn't used yet, not working [facility] Medical History (Updated 02/01/24 @ 11:57 by KARLY Blackwell) Back pain Migraine ADHD Anxiety Depression Morbid obesity Thrombosed external hemorrhoids Polycystic ovarian syndrome Surgical History (Updated 01/22/24 @ 00:02 by Rachel Burton) S/P laparoscopic sleeve gastrectomy Hx of esophagogastroduodenoscopy History of delivery History of wisdom tooth extraction Family History Mother Non-Hodgkin lymphoma Social History (Reviewed 01/18/24 @ 11:16 by KAEL Orozco Household Members: Significant Other Housing: House Are you a primary tree care foreman to a significant other at home: No Do you presently have visiting nurse or other home services: No Patient Tobacco Use Status: Former Tobacco user Quit Date: 11/29 Substance Use Type: Marijuana Telehealth Telehealth Telehealth Platform: Telephone Location of provider rendering services: practice address Location of patient: address on file Patient Identification confirmed using: Name, : Yes Telehealth method: voice only Patient verbally consented to treatment: Yes Patient verbally consented to billing insurance company: Yes Patient informed of any privacy concerns related to visit: Yes Minutes spent on Phone/Video with Pt.: 15 Assessment & Plan Assessment & Plan (1) Obesity: Code(s): E66.9 - Obesity, unspecified Category: Medical (2) S/P laparoscopic sleeve gastrectomy: Code(s): Z98.84 - Bariatric surgery status Category: Surgical Plan Continue same meal plan per Dr. Baeza Pt is resuming exercise after taking a few weeks off. Due to complete PPI and carafate this month, does not need refills. RTC 1 month. Patient is obese and is not considered stable at this time. I spent a total of 30 minutes reviewing/updating records, examining the patient and counseling the patient on weight management as detailed above.
[2024-03-16 12:19] VITALS: BMI 34.9
== END 2024-03-16 12:29 | disposition home or self-care (01) ==
LOC: HO.HBS 12:22
PROVIDERS: Visit Provider Physician Assistant Surgical
DX: E66.9 Obesity, unspecified (principal); Z68.34 Body mass index [BMI] 34.0-34.9, adult; Z90.3 Acquired absence of stomach [part of]; Z98.84 Bariatric surgery status
CPT/HCPCS: 99024

== ENCOUNTER → 2024-03-16 12:22 | Outpatient (BNVA) | payer OTHER, SELFPAY | PROVIDERS: Visit Provider Physician Assistant Surgical ==

== ENCOUNTER 2024-04-20 13:11 | Outpatient (AMB) | payer OTHER, SELFPAY ==
--- NOTE | 2024-04-20 13:01 | MHC.OFFVISWM ---
VS Expanded 04/20/24 13:04 Height 5 ft 5 in Weight 201 lb BMI 33.4 Intake Visit Reasons: (TELEPHONE) PO LSG 01/13/24 Allergies No Known Allergies Allergy (Verified 01/18/24 11:01) Medication List - Last Reconciled 04/20/24 by KARLY Blackwell albuterol sulfate 90 mcg/actuation 2 puffs inhalation Q6H PRN bupropion HCl XL 300 mg PO QAM lisdexamfetamine (Vyvanse) 30 mg PO DAILY pantoprazole 40 mg PO DAILY sucralfate 10 mL PO BID HPI Comments Details: This?is a?29?yo female who is s/p LSG 01/13/2024. Presents for 2 month post op visit. Weight at last visit on 03/16/2024 was 210 pounds with a BMI of 34.9, weight today is 201 pounds, representing a 9 pound weight loss with a BMI today of 33.4.? No complaints of nausea, emesis, abdominal pain or reflux, or constipation. Started a new job which is less stressful than previous job. Works 3:30pm-9pm. 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 [employer] Medical History (Updated 02/01/24 @ 11:57 by KARLY Blackwell) Back pain Migraine ADHD Anxiety Depression Morbid obesity Thrombosed external hemorrhoids Polycystic ovarian syndrome Surgical History (Updated 01/22/24 @ 00:02 by Rachel Burton) S/P laparoscopic sleeve gastrectomy Hx of esophagogastroduodenoscopy History of delivery History of wisdom tooth extraction Family History Mother Non-Hodgkin lymphoma Social History Household Members: Significant Other Housing: House Are you a primary spiritual care coordinator to a significant other at home: No Do you presently have visiting nurse or other home services: No Patient Tobacco Use Status: Former Tobacco user Substance Use Type: Marijuana Telehealth Telehealth Telehealth Platform: Telephone Location of provider rendering services: other Location of patient: address on file Patient Identification confirmed using: Name, : Yes Telehealth method: voice only Patient verbally consented to treatment: Yes Patient verbally consented to billing insurance company: Yes Patient informed of any privacy concerns related to visit: Yes Minutes spent on Phone/Video with Pt.: 15 Assessment & Plan Assessment & Plan (1) Obesity: Code(s): E66.9 - Obesity, unspecified Category: Medical (2) S/P laparoscopic sleeve gastrectomy: Code(s): Z98.84 - Bariatric surgery status Category: Surgical Plan Continue same meal plan for now as given by Dr. Potter. Can substitute a 20g protein bar for Slimfast or Isopure full scoop drink if she wants (sent protein bar options). RTC 6 weeks. Patient is obese and is not considered stable at this time. I spent a total of 30 minutes reviewing/updating records, examining the patient and counseling the patient on weight management as detailed above.
[2024-04-20 13:04] VITALS: BMI 33.4
== END 2024-04-20 13:15 | disposition home or self-care (01) ==
LOC: HO.HBS 13:11
PROVIDERS: Visit Provider Physician Assistant Surgical
DX: E66.9 Obesity, unspecified (principal); Z68.33 Body mass index [BMI] 33.0-33.9, adult; Z90.3 Acquired absence of stomach [part of]; Z98.84 Bariatric surgery status
CPT/HCPCS: 99214

== ENCOUNTER → 2024-04-20 13:11 | Outpatient (BNVA) | payer OTHER, SELFPAY | PROVIDERS: Visit Provider Physician Assistant Surgical ==

== ENCOUNTER 2024-05-31 10:51 | Outpatient (AMB) | payer OTHER, SELFPAY ==
--- NOTE | 2024-05-31 10:37 | MHC.OFFVISWM ---
VS Expanded 05/31/24 10:43 Height 5 ft 5 in Weight 195 lb BMI 32.4 Intake Visit Reasons: TELEPHONE PO LSG 01-13-2024 Allergies No Known Allergies Allergy (Verified 01/18/24 11:01) Medication List - Last Reconciled 05/31/24 by KARLY Blackwell albuterol sulfate 90 mcg/actuation 2 puffs inhalation Q6H PRN bupropion HCl XL 300 mg PO QAM lisdexamfetamine (Vyvanse) 30 mg PO DAILY HPI Comments Details: This?is a?29?yo female who is s/p LSG 01/13/2024. Presents for 4.5 month post op visit. Weight at last visit on 04/20/2024 was 201 pounds with a BMI of 33.4, weight today is 195 pounds, representing a 6 pound weight loss with a BMI today of 32.4.? No complaints of nausea, emesis, abdominal pain or reflux, or constipation. Reports some hair loss. Present meal plan includes: 8-10am Isopure 1/2 scoop in 8oz water 11am-1pm Celebrate bar 2-4pm Isopure 1 scoop in 8oz water 5pm dinner- 4 forks protein, 4 forks veg 7-9pm Slimfast or Isopure shake staying hydrated occasionally uses slimfast high protein shake (20g) or protein water taking MVI meal plan has been not great - still trying to get enough protein but having some difficulty with planning and getting everything in, sometimes won't start eating until later in the day Exercise routine includes: going to gym 3-4x/week, treadmill for 500-600cal each time has a treadmill at home but hasn't used yet, not working has not had as much time to go to gym due to 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[employer] Medical History (Updated 02/01/24 @ 11:57 by KARLY Blackwell) Back pain Migraine ADHD Anxiety Depression Morbid obesity Thrombosed external hemorrhoids Polycystic ovarian syndrome Surgical History (Updated 01/22/24 @ 00:02 by Rachel Burton) S/P laparoscopic sleeve gastrectomy Hx of esophagogastroduodenoscopy History of delivery History of wisdom tooth extraction Family History Mother Non-Hodgkin lymphoma Social History Household Members: Significant Other Housing: House Are you a primary acute care clinical nurse specialist to a significant other at home: No Do you presently have visiting nurse or other home services: No Patient Tobacco Use Status: Former Tobacco user Substance Use Type: Marijuana Telehealth Telehealth Telehealth Platform: Telephone Location of provider rendering services: practice address Location of patient: address on file Patient Identification confirmed using: Name, : Yes Telehealth method: voice only Patient verbally consented to treatment: Yes Patient verbally consented to billing insurance company: Yes Patient informed of any privacy concerns related to visit: Yes Minutes spent on Phone/Video with Pt.: 15 Assessment & Plan Assessment & Plan (1) Obesity: Code(s): E66.9 - Obesity, unspecified Category: Medical (2) S/P laparoscopic sleeve gastrectomy: Code(s): Z98.84 - Bariatric surgery status Category: Surgical Plan Will adjust meal plan to 3 15g protein bars, one 20g protein water and one small meal 4f/4f. Pt feels this is more doable for her. She also knows she should increase exercise to help with pace of weight loss. RTC 6 weeks for 6 month visit. I spent a total of 30 minutes reviewing/updating records, examining the patient and counseling the patient on weight management as detailed above.
[2024-05-31 10:43] VITALS: BMI 32.4
== END 2024-05-31 10:59 | disposition home or self-care (01) ==
LOC: HO.HBS 10:51
PROVIDERS: Visit Provider Physician Assistant Surgical
DX: E66.9 Obesity, unspecified (principal); Z98.84 Bariatric surgery status
CPT/HCPCS: 99499

== ENCOUNTER → 2024-05-31 10:51 | Outpatient (BNVA) | payer OTHER, SELFPAY | PROVIDERS: Visit Provider Physician Assistant Surgical ==

== ENCOUNTER 2025-11-01 15:33 | Emergency (ER) | payer MEDICAID, SELFPAY ==
--- NOTE | ~2025-11-01 | XR_ITS ---
EXAMINATION: XR LUMBOSACRAL SPINE CLINICAL INFORMATION: pain after bending COMPARISON: None available. TECHNIQUE: Three views of the lumbosacral spine. FINDINGS: Lumbar lordosis is maintained. No subluxation. Vertebral body heights are maintained. Mild disc space narrowing at L5-S1 associated with small marginal osteophytes. Bilateral sacroiliac joints are intact. Surgical clips project over the left upper quadrant. XR/XR lumbar spine 2-3V IMPRESSION: 1. No acute compression fracture or subluxation. 2. Mild degenerative changes at L5-S1. Electronically signed by: Magui Putnam MD 11/01/2025 04:08 PM SENA
[2025-11-01 15:44] VITALS: BP 126/84; BP 128/73; PULSE 68; PULSE 86; RESP 18; TEMP 36.3; O2SAT 92; O2SAT 98; BMI 34.1
--- NOTE | 2025-11-01 15:48 | PC.NURSE ---
Patient presented to ED via EMS from home with progressive back pain x1 month. Patient was putting on sock today when she felt sharp shooting pain in lumbar region of back and right leg at 1030. Rigt leg progressivley became more numb for which she came here. Rating pain 7/10. Resting in bed. VSS.
--- NOTE | 2025-11-01 16:04 | ED_ITS ---
HPI - Back Pain/Injury General Chief Complaint: Back Pain/Injury Stated Complaint: back pain x1 month, extreme pain putting on sock Time Seen by Provider: 11/01/25 15:39 Source: patient, RN notes reviewed and old records reviewed Mode of arrival: EMS Limitations: no limitations History of Present Illness ED Provider: Radha Pimentel PA-C HPI Narrative: ? The patient reports a one-year history of intermittent lower back pain that she associates with a history of cysts (external and facial); no cysts are present today. ? Yesterday she sneezed and ?tweaked? her back; this morning while putting on a sock she felt a sudden ?snap? in her back, followed by severe, shocking/shooting pain radiating down the right leg. ? She was unable to walk, crawled to bed, and had to have the ambulance come and get her out of her room due to inability to ambulate; it is not specified if she was transported to the hospital. ? Pain is described as ?the worst cramp of your life,? with associated numbness in the affected area. ? Lying supine worsens symptoms; the patient is most comfortable in a flexed position and typically sleeps with legs bent. Side-lying on the left exacerbates pain in the right lower back. ? Sitting increases soreness unless additional lumbar support is used. ? Denies falls or trauma; denies IV drug use. ? Tried OTC lidocaine patches yesterday with limited relief. NO hx of cancer, chronic steroid use, loss/change in bladder/bowel function. NO saddle anesthesia Review of Systems: Musculoskeletal: Positive for persistent lower back pain, muscle stiffness, inability to fully extend right side. Neurologic: Positive for shocking/shooting pain down right leg, numbness in affected area. MD elicited complaint: back pain Onset (ago): day(s) (1) Related Data Home Medications ?Medication ?Instructions ?Recorded ?Confirmed bupropion HCl 300 mg 24 hr tablet, 300 mg PO QAM 10/1305/31/24 extended release lisdexamfetamine 30 mg capsule 30 mg PO DAILY 10/13/23 05/31/24 (Vyvanse) albuterol sulfate 90 mcg/actuation 2 puff inhalation Q 6H PRN Wheezing 01/13/24 05/31/24 aerosol inhaler Previous Rx's ?Medication ?Instructions ?Recorded meloxicam 15 mg tablet 15 mg PO DAILY #14 tabs 10/15 07/09 methocarbamol 750 mg tablet 750 mg PO TID muscle spasm #15 tabs 11/01/25 Allergies Allergy/AdvReac Type Severity Reaction Status Date / Time No Known Allergies Allergy Verified 11/01/25 15:47 Review of Systems Review of Systems: Yes all other systems are reviewed and are negative PMFSH Past Medical History Attestation statement: The following information was validated with the patient. Source: old records reviewed and nursing notes reviewed Medical History (Updated 11/02/25 @ 00:00 by Background Josephine) Back pain Migraine ADHD Anxiety Depression Morbid obesity Thrombosed external hemorrhoids Polycystic ovarian syndrome Surgical History (Updated 01/22/24 @ 00:02 by Background Josephine) S/P laparoscopic sleeve gastrectomy Hx of esophagogastroduodenoscopy History of delivery History of wisdom tooth extraction Family History Family History Mother Non-Hodgkin lymphoma Social History Social History Household Members: Significant Other Housing: House Are you a primary director long term care to a significant other at home: No Do you presently have visiting nurse or other home services: No Patient Tobacco Use Status: Former Tobacco user Substance Use Type: Marijuana Advance Directives: No Advance Directives Information Provided: Yes Physical Exam Exam: Exam: General: Appears in no acute distress, appears well-nourished body habitus is obese, appears stated age. No septic or ill-appearing. Vitals were reviewed as normal, and PMH/Social and Surgical hx was reviewed, including allergies and current medications. Head: Normocephalic, no obvious trauma or skin lesions noted. Eyes: EOMI ENMT: moist oral mucosa Neck: trachea midline Cardiovascular: peripheral perfusion normal, Regular heart rate, regular rhythm, no abdominal bruit Respiratory: no respiratory distress, lungs clear, no chest wall ttp Abdomen: non-distended, obese Extremities: warm and moving without difficulty Psych: Cooperative Neuro: Alert and oriented. Strength 4+ throughout, DTRs intact, sensation equal and symmetric, Patient ambulates with significant difficulty; unable to extend right lumbar region, slight forward flexion tolerated. Right-sided paraspinal tenderness noted., no midline tenderness, step-offs or deformities noted, no sciatic notch or GT tenderness noted, + SLR right side Vital Signs: Vital Signs: Last Vital Signs Temp 97.4 F 11/01/25 15:44 Pulse 60 11/01/25 16:07 Resp 16 11/01/25 16:07 BP 126/76 11/01/25 16:07 Pulse Ox 98 11/01/25 16:07 O2 Del Method Room Air 11/01/25 16:07 BMI result Body Mass Index 34.1 Medications Administered Discontinued Medications Generic Name Dose Route Start Last Admin Trade Name Yusuf PRN Reason Stop Dose Admin Diazepam 2 mg 11/01/25 16:39 11/01/25 16:51 Diazepam 2 Mg Tablet PO 11/01/25 16:40 2 mg ONCE ONE Administration Medical Decision Making Medical Decision Making [facility] Narrative: The presentation is consistent with acute exacerbation of chronic low back pain with probable lumbar radiculopathy (suspected pinched nerve) on the right. No red-flag features (no trauma, no signs of cauda equina, no IV drug use). Fracture considered unlikely. Problem #1: Acute low back pain with right-sided radicular features Assessment: Severe muscle spasm and suspected nerve root irritation following minor movement; limited mobility and functional impairment. Plan: * Start meloxicam once daily (24-hour formulation); instruct patient to take first dose at 7 AM and avoid concurrent NSAIDs such as ibuprofen/Motrin. * Initiate muscle relaxer for symptomatic relief. * Activity modification: avoid bending and lifting >20 lbs; maintain proper foot placement during activities; walk as tolerated (indoor mall walking recommended due to cold weather). * Positioning education: sleep with legs bent, use pillow to keep hips/knees/feet aligned; ensure lumbar support when sitting. * Heat therapy: use moist heat (hot shower or warm damp towel) rather than dry heat. * Provide orthopedic/physical therapy referral information. The patient presented with an acute exacerbation of chronic low back pain accompanied by right-sided radicular symptoms and significant functional impairment. A thorough evaluation for red-flag features?including trauma, cauda equina syndrome, and IV drug use?was performed and none were identified. Based on the clinical assessment, the patient received valium on-site for immediate muscle spasm relief. Prescriptions for robaxin (muscle relaxant) and meloxicam (NSAID) were sent to the pharmacy for ongoing management. The treatment plan also includes activity modification, education on proper positioning, heat therapy, and referral information for orthopedic/physical therapy. This management approach is guideline-based and tailored to the patient's current presentation and limitations, with the goal of optimizing function and symptom control while minimizing unnecessary interventions. Citation: Supports guideline-based management of acute low back pain, including evaluation for red-flag features, use of NSAIDs and muscle relaxants, and non- pharmacologic interventions. L spine was ordered from triage, no acute findings. Differential Diagnosis Differential Diagnoses: The differential diagnosis associated with the presentation includes HNP lumbar radiculopathy lumbar strain/ spasm Admission/Observation Consideration of admission/observation: Escalation of care including admission/observation considered Patient would have been admitted to the hospital had her work up had any findings where hospital admission was appropriate and her clinical presentation warranted hospital admission. Independent Interpretation I performed an independent interpretation of an: Plain X-Ray Interpretation: no fracture Radiology Impression Discussion of test interpretation with radiology: I have reviewed the radiologist's reading. Radiologist Impression: IMPRESSION: 1. No acute compression fracture or subluxation. 2. Mild degenerative changes at L5-S1. Prescription Management I considered prescription management with: Pain Medication Social Determinants Patient?s care significantly limited by Social Determinants of Health including: Other Social Determinant of Health Discharge Plan Discharge Clinical Impression: Spasm of lumbar paraspinous muscle, Acute lumbar myofascial strain Patient Disposition: Home, Self-Care Instructions: Lower Back Exercises (ED) Additional Instructions: You were evaluated for lower back pain. Your symptoms are consistent with a lower back strain/spasm with a pinched nerve. BACK CARE Use the long acting antiinflammatory Meloxicam, do not take other NSAIDs with this on same day. Take this with food. Take this regularly for the next 3-5 days and then as needed. In addition, You can use Tylenol (acetaminophen) 650 mg every 6 hrs as needed for pain. Do not take more than 3000 mg in one day! Use intermittent heat 4 or 5 times a day, 20 minutes at a time, for a few days. You may use topical therapy such as IcyHot with Lidocaine or Aspercream with Lidocaine, both of which are available over the counter. Do not perform any heavy lifting. Go immediately to the Emergency Department if you develop any increased or uncontrolled pain, numbness, tingling, or weakness of the extremities, difficulty urinating or passing stools. Please see your doctor or an orthopedist if not improving over the next 1-2 weeks. Prescriptions: New meloxicam 15 mg tablet 15 mg PO DAILY Qty: 14 0RF methocarbamol 750 mg tablet 750 mg PO TID Qty: 15 0RF No Action albuterol sulfate 90 mcg/actuation Hfa Aerosol Inhaler 2 puff INHALATION Q6H PRN (Reason: Wheezing) bupropion HCl 300 mg tablet extended release 24 hr 300 mg PO QAM lisdexamfetamine [Vyvanse] 30 mg capsule 30 mg PO DAILY Referrals: [facility] [place] [facility] [Provider Group] Clinical Impression: Spasm of lumbar paraspinous muscle Stand Alone Forms: Work/School Release Discharge Date/Time: 11/01/25 17:08 Print Language: Croatian
[2025-11-01 16:07] VITALS: BP 126/76; PULSE 60; RESP 16; O2SAT 98
--- OUTSIDE RECORDS SUMMARY | 2025-11-01 19:48 | XMS_ITS | Clinical Summary ---
Author Organization [facility] Address [address] [place] [address] Phone Care Team Providers Care Sewer And Cutter Finger Buff Material Name Role Phone Raheem Moore DO Unavailable [phone] Karena Gonzalez NP Primary Care Provider [phone] Margarette Roberto MD Unavailable [phone] Allergies No known active allergies Medications PNV no.153/FA/om3/d noel/epa/fish ( GUMMIES ORAL) Take by mouth. Active estradioL (ESTRACE) 0.01 % (0.1 mg/gram) vaginal cream Place 1 g vaginally. 02/05/2023 Active etonogestreL-et hinyl estradioL (NUVARING) 0.12-0.015 mg/[address] 1 each vaginally. 08/03/2023 Active LISDEXAMFETAMIN E 30 mg capsule Take 1 capsule by mouth every morning. 08/30/2023 Active buPROPion (WELLBUTRIN XL) 300 MG ER 24 hr tablet Take 300 mg by mouth daily. Active albuterol 90 mcg/actuation inhaler Inhale 2 puffs into the lungs every 6 (six) hours as needed for wheezing. 18 g 10/18/2023 Active Active Problems Problem Noted Date Diagnosed Date Decreased movements in third trimester 09/2022 Acanthosis nigricans 12/17/2020 Overview (12/17/2020): Groin, axila, neck. Assessment & Plan (12/17/2020 4:42 PM EST): Weight loss, metabolic labs ordered. Will trial metformin. Will also change nexplanon to Nuvaring. Class 3 severe obesity witho ut serious comorbidity with body mass index (BMI) of 45.0 to 49.9 in adult 12/17/2020 Overview (01/15/2022): Obesity in (BMI >30) BMI at Intake 45.76 Date Obesity plan of care discussed: reviewed by EP on 01/14/22 BMI > 50 (at 36 weeks or before) transfer to tertiary care * If BMI 40 or greater discuss policy w patient and add to high risk list * first trimester screen for diabetes - HgbA1c or 1-hr glucose tolerance test * Nutrtion counseling * 11-20lb weight gain * Growth sono q 4 wks if fundal height not reliable, after 28 weeks * Induction only if indicated * PP lovenox according to guidelines Assessment & Plan (04/29/2022 9:59 AM EDT): Her total weight gain to date has been approximately 17 pounds. BMI is now 47. It started at 44. She was instructed that she should try to keep her weight gain to 20 pounds total. As it is difficult to assess fundal height, we will check ultrasound at next visit for estimated weight. Assessment & Plan (12/17/2020 4:40 PM EST): Discussed trial of metformin for insulin sensitization given extensive acanthosis nigricans. Labs ordered. Resolved Problems Problem Noted Date Diagnosed Date Resolved Date High-risk , second trimester 02/03/2022 06/25/2022 Overview (05/26/2022): OB-CMI score: 2 [01/27/2022] Group PN care? * Rh POS GC/Chlam - send urine at next visit PAP NIL (transformation zone absent) 01/2022 Tdap * Flu * COVID-19* Hgb 12.1 GTT 110 28 wk Repeat RPR neg GBS * PPBC * screening - low risk ERA Assessment & Plan (06/10/2022 2:46 PM EDT): +FM, no contractions, no NOEL, no vision changes No bleeding, leakage of fluid Mild pelvic pain with movement 1 hr GTT 110 No concerns at this time Is advised that further weight gain of 9 lbs will cross the BMI of 50, she states she has been counseled I do not see appointments been made for growth ultrasound and so I asked campus receptionist to make sure she has 1 before she leaves today 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 She denies any vaginal bleeding, leakage of fluid, or regular contractions. Overall, she is doing well and has no complaints. She is due for her 1 hour GTT, CBC, and repeat RPR. Assessment & Plan (02/04/2022 9:56 PM EDT): Encounter Date: 02/03/2022 Chief Complaint: Chief Complaint Patient presents with Initial Visit Subjective: Jose ESTRADA is a 26 y.o. at 13w3d who presents for her FOB visit. She is feeling better in the second trimester. Review of Systems: As in HPI. All other systems reviewed and negative. Patient Active Problem List Diagnosis Acanthosis nigricans Class 3 severe obesity without serious comorbidity with body mass index (BMI) of 45.0 to 49.9 in adult High-risk , second trimester Past Medical History: Diagnosis Date Anxiety Back pain Depression Meds as a teen. No Therapist Dysmenorrhea History reviewed. No pertinent surgical history. Family History Problem Relation Age of Onset Diabetes mellitus Paternal Grandfather Diabetes Paternal Grandfather Hodgkins lymphoma Mother Diabetes mellitus Maternal Aunt Social History Socioeconomic History Marital status: Single Spouse name: None Number of children: None Years of education: None Highest education level: None Occupational History None Tobacco Use Smoking status: Current Some Day Smoker Packs/day: 0.25 Years: 5.00 Pack years: 1.25 Types: Cigarettes Smokeless tobacco: Never Used Tobacco comment: Pt has stopped smoking around 01/18/22. She is smoking a few drags per day. Vaping Use Vaping Use: Former Substance and Sexual Activity Alcohol use: Not Currently Comment: Stopped with positive UPT Drug use: Yes Types: Marijuana Comment: Smoking Marijuana 1-2x per day. Not trying to quit. Sexual activity: Yes Partners: Male control/protection: None Other Topics Concern None Social History Narrative None Social Determinants of Health Social determinant risk not applicable to this patient. OB History Para Term AB Living 1 0 0 0 0 0 SAB TAB Ectopic Multiple Live Births 0 0 0 0 0 # Outcome Date GA Lbr Yoan/2nd Weight Sex Delivery Anes PTL Lv 1 Current Obstetric Comments Gardasil series completed Has not had first pap per records Menstrual History No LMP recorded. Patient is . Prior to Admission medications Medication Sig Start Date End Date Taking? Authorizing Provider PNV no.153/FA/om3/dha/epa/fish ( GUMMIES ORAL) Take by mouth. Yes Historical Provider, cyclobenzaprine (FLEXERIL) 10 MG tablet Take 10 mg by mouth 3 (three) times a day as needed for muscle spasms. Patient not taking: Reported on 01/14/2022 01/15/22 Historical Provider, etonogestreL-ethinyl estradioL (NUVARING) 0.12-0.015 mg/24 hr vaginal ring INSERT 1 RING VAGINALLY DIRECTED. REMOVE AFTER 3 WEEKS & WAIT 7 DAYS BEFORE INSERTING A NEW RING Patient not taking: Reported on 01/14/2022 04/18/21 01/15/22 Ryland Alvarez MD hydrocortisone (ANUSOL-HC) 2.5 % rectal cream Place rectally 2 (two) times a day. Patient not taking: Reported on 01/14/2022 08/21/21 01/15/22 Hawa Cummings PA-C, MS ibuprofen (ADVIL,MOTRIN) 600 MG tablet Take 600 mg by mouth every 6 (six) hours as needed for pain (specific location in comments). 01/15/22 Historical Provider, metFORMIN (GLUCOPHAGE-XR) 500 MG 24 hr tablet Take 1 tablet (500 mg total) by mouth daily with dinner. Increase by one pill each week until you reach target dose of 2000 mg (4 tabs) per day Patient not taking: Reported on 01/13/2021 12/17/20 01/15/22 Ryland Alvarez MD oxyCODONE-acetaminophen (PERCOCET) 5-325 mg per tablet Take 1 tablet by mouth every 6 (six) hours as needed for pain (specific location in comments). Partial fill ok Patient not taking: Reported on 01/14/2022 06/28/21 01/15/22 Bill Carmen PA-C No Known Allergies Objective: Vitals: 02/03/22 0951 BP: 116/66 Weight: 124.7 kg (275 lb) Gen: Alert, cooperative. Well-appearing on today's exam Cardiovascular: regular rate and rhythm, no m/r/g Lung: clear to auscultation bilaterally, no wheezing, ronchi, normal respiratory effort Breast: No breast concerns, breast exam deferred Abdomen: Soft,non-tender. No masses palpable, no organomegaly. No notable scarring. Extremities: no calf tenderness, discoloration or edema, atraumatic without deformity Skin: Skin color, texture, turgor normal. No rashes or lesions Psych: Mood and affect appropriate. Pelvic: External Genitalia: Normal architecture, without lesions. No inguinal lymphadenopathy. Vagina: Mucosa is pink with normal rugae. No abnormal discharge or lesions. Cervix: Normal appearance, without discharge or lesions. No cervical motion tenderness. Pap smear obtained. Uterus: 13 weeks size and shape. Anteverted position. Non-tender. Mobile Adnexa: No adnexal masses or tenderness bilaterally. Assessment/Plan: 26 y.o. with IUP at 13+3. Urine culture and pap smear sent today. Return OB in 4 weeks. Encounters Date Type Department Care Team Description 08/13/2025 [facility] RISK SCORES SYSTEM GENERATED External System Generated Encounter [id number] [place] [id number] Unknown, Unknown, from Last 3 Months Immunizations Immunization Administration Dates Next Due DTaP, unspecified formulation 04/12/1999 ,03/15/1998,1995,1994,1995 HPV, unspecified formulation 11/30/2007,09/20/20 07 Hepatitis B, unspecified formulation 01/08/1996, 1995,1995 Hib, unspecified formulation 03/15/1998, 1995,1995,1994 IPV 03/15/1998, 5,1995,1994 MMR 06/27/1996 MMRV 07/23/1999 Td, unspecified formulation 06/01/2006 Varicella 07/22/2007,04/06/1996 Family History Medical History Relation Comments Diabetes mellitus Maternal Aunt Hodgkins lymphoma Mother Diabetes Paternal Grandfather Diabetes mellitus Paternal Grandfather Relation Status Comments Father Alive Maternal Aunt Mother Paternal Grandfather Social History Tobacco Use Types Packs/Day Years Used Date Smoking Tobacco: Some Days Cigarettes 0.3 5 Smokeless Tobacco: Never Tobacco Cessation:Ready to Q uit: Not Asked; Counseling Given: Not Answered Comments:Pt has stopped smoking around 01/18/22. She is smoking a few drags per day. Alcohol Use Standard Drinks/Week Comments Not Currently 0 (1 standard drink = 0.6 oz pur e alcohol) Stopped with positive UPT Education Answer Date Recorded Are you interested in more education? Not on amara e 03/12/2023 Are you concerned about learning? Not on file 03/12/2023 No 03/12/2023 No 03/12/2023 Digital Access Answer Date Recorded No 2023 No 2023 Reliable internet access at home? Not on file 2023 Device with a working camera? Not on file Comments No Sex and Gender Information Value Date Recorded Sex Assigned at Female 02/26/2018 1:42 PM EDT Legal Sex Female 8:53 PM EDT Gender Identity Female 02/26/2018 1:42 PM EDT Sexual Orientation Straight 02/26/2018 1: 42 PM EDT Last Filed Vital Signs Vital Sign Reading Time Taken Comments Blood Pressure 113/80 10/18/2023 10:51 AM EST Pulse 98 10/18/2023 10:51 AM EST Temperature 37 C (98.6 F) 10/18/2023 10:51 AM EST Respiratory Rate 20 10/18/2023 10:5 1 AM EST Oxygen Saturation 96% 10/18/2023 10: 51 AM EST Inhaled Oxygen Concentration - - Weight 127.5 kg (281 lb) 10/18/2023 10: 51 AM EST patient reported Height 165.1 cm (5' 5 ) 10/18/2023 10:5 1 AM EST Body Mass Index 46.76 10/18/2023 10:51 AM EST Plan of Treatment Health Maintenance Due Date Last Done Comments DEPRESSION SCREENING 2007 SMOKING Hx and SMOKELESS TOBACCO SCREENING 2008 PNEUMOCOCCAL VACCINES (0-49 years) (1 of 2 - PCV) 2014 Adult Td,Tdap Booster 06/01/2016 06/01/2006 PAP SMEAR 02/03/2025 02/03/2022 INFLUENZA VACCINE (#1) 2025 COVID-19 VACCINE (1 - season) 2025 HIB VACCINES Completed 03/15/1998, 09/16, 1995, Additional history exists HEPATITIS C SCREENING Completed 01/29/2022, 022 HIV ONE-TIME SCREENING (18-65 YEARS) Completed 01/29/2022 HEPATITIS A VACCINES Aged Out No long er eligible based on patient's age to complete this topic MENINGOCOCCAL VACCINES (ACWY) Aged Out No longer eligible based on patient's age to complete this topic MENINGOCOCCAL VACCINES (B) Aged Out N o longer eligible based on patient's age to complete this topic Medical Devices Not on file Procedures Procedure Name Priority Date/Time Associated Diagnosis Comments PAP TEST Routine 02/03/2022 12:00 AM EDT HEPATITIS C ANTIBODY, QUALITATIVE Routine 01/29/2022 2:46 PM EDT Unplanned from Last 3 Months or Most Recently Relevant to Health Maintenance Results * Pap Smear (02/03/2022 12:00 AM EDT) 02/03/2022 02/04/2022 9:5 5 AM EDT Narrative SEE NARRATIVE - 02/10/2022 11:39 AM EDT [address] [address] Insulation Worker Furnace Installer: Marita Acevedo MD LEASE OUT MAN Cytology Report FINAL DIAGNOSIS A. PAP SMEAR (SUREPATH) CE: SPECIMEN ADEQUACY: Satisfactory for evaluation; transformation zone absent/insufficient. INTERPRETATION: NEGATIVE FOR INTRAEPITHELIAL LESION OR MALIGNANCY. Electronically Signed Out By: LAKEISHA Guerra(ASCP) The Pap test is a screening test primarily for squamous cancers and precursors and has associated false-negative and false-positive results. New technologies such as liquid-based preparations may decrease but will not eliminate all false-negative results. Regular sampling and follow-up of unexplained clinical signs and symptoms are recommended to minimize false negative results. CLINICAL HISTORY Date of Last Menstrual Period: 06-14-2021 Menstrual History: Other Clinical Conditions: Screening Pap SPECIMEN SOURCE A: PAP SMEAR (SUREPATH) CE Patient Name: JOSE SANTO : 1995 (Age: 26) Sex: F Institution: [facility] Location: [facility] Date of Collection: 02/03/2022 Date of Reported: 02/10/2022 11:39 Results to: Shyanne Cochran CNM Shyanne Cochran CNM CYTOLOGY ORDERABLES Kiah l Result SEE NARRATIVE * Hepatitis C antibody, qualitative (01/29/2022 2:46 PM EDT) HCV NON-REACTIV E NON-REACTI VE [facility] Blood 01/29/2022 2:46 PM EDT 01/29/2022 2:53 PM EDT Josselin Simpson MD LAB BLOOD BKR ORDERABLES Kiah l Result Performing Organization Address City/[facility]/ZIP Co de Phone Number [address] [address] from Last 3 Months or Most Recently Relevant to Health Maintenance [place] [address] [email or web address]) [facility] FULL Member Subscriber Plan / Payer (Ef fective 2023-Present) Name:Jose Santo Relation to Subscriber:Self Name:Jose Santo Payer ID:Not on file Group ID:Not on file Type:Medicaid Address: [place] [id number] [employer] [place] [address] [employer] [address] [address] DIRECT [facility] SAFETY [place] [address] [employer] [place] [address] [address] [facility] [facility] [employer] [place] [address] [place] [address] [employer] [facility] [employer] DIRECT [facility] [employer] DIRECT Care Teams Sewer And Cutter Finger Buff Material Relationship Specialty Start Date End Date Karena Gonzalez NP [address] [place] [address] [email or web address] PCP - General Nurse Practitioner 10/18/23 Raheem Moore DO [address] [place] [address] [email or web address] Hematology and Oncology 12/05/18 Margarette Roberto MD [address] [place] [address] [email or web address] Insurance Assigned Provider 09/29/25 Additional Source Comments The information contained in this document represents components of the legal health record. It is not the complete legal health record.[facility]
--- OUTSIDE RECORDS SUMMARY | 2025-11-01 19:48 | XMS_ITS | Encounter Summary ---
Author Organization [facility] Address [address] [place] [address] Phone Care Team Providers Care Passenger Car Upholsterer Apprentice Name Role Phone Fransico Pearson MD Unavailable [phone] Seda Qureshi HOT ROLL LAMINATOR Unavailable Bill Segovia MD Unavailable Norma Sierra HOT ROLL LAMINATOR Unavailable [phone] Fransico Pearson MD Primary Care Provider Raheem Moore DO Unavailable Paolo Dewey MD Primary Care Provider [phone] Paolo Dewey MD Unavailable Karena Gonzalez HOT ROLL LAMINATOR Primary Care Provider [phone] Margarette Roberto MD Unavailable [phone] Encounter Details Date Type Department Care Team (Latest Contact Info) Description 05/30/2020 Transcribe Orders Virtual Department [address] [place] [address] Delicia Valdez CNP [address] [place], [place] [id number] [email or web address] Cough (Primary Dx); SOB (shortness of breath); Nonintractable headache, unspecified chronicity pattern, unspecified headache type; Nausea and vomiting, intractability of vomiting not specified, unspecified vomiting type; Chest heaviness Social History Tobacco Use Types Packs/Day Years Used Date Smoking Tobacco: Every Day Cigarettes Smokeless Tobacco: Never Alcohol Use Standard Drinks/Week Comments No 0 (1 standard drink = 0.6 oz pur e alcohol) Comments No Sex and Gender Information Value Date Recorded Sex Assigned at Female 02/26/2018 1:42 PM EDT Legal Sex Female 8:53 PM EDT Gender Identity Female 02/26/2018 1:42 PM EDT Sexual Orientation Straight 02/26/2018 1: 42 PM EDT documented as of this encounter Plan of Treatment Not on file documented as of this encounter Results * COVID-19 PCR Order (05/31/2020 10:21 AM EDT) Specimen Source NASOPHARYNGEAL SWAB (HOT ROLL LAMINATOR) [facility] COVID-19 Comment HEADACHE , NAUSEA, VOMITTING, CHEST HEAVINESS [facility] COVID Testing Status In-house testing being performed [facility] Other 05/31/2020 10:2 1 AM EDT 05/31/2020 11:20 AM EDT us Delicia Valdez [facility] LAB GENERAL ORDERABLES Final Result Performing Organization Address City/State/[facility] Co de Phone Number [address] [address] documented in this encounter Visit Diagnoses Diagnosis Cough- Primary SOB (shortness of breath) Shortness of breath Nonintractable headache, unspecified chronicity pattern, unspecified headache type Nausea and vomiting, intractability of vomiting not specified, unspecified vomiting type Chest heaviness Other chest pain documented in this encounter Additional Health Concerns Infection Onset Date Last Indicated Resolved Time CoV-Risk 05/30/2020 05/31/2020 06/13/2020 1:28 AM EDT documented as of this encounter Care Teams Passenger Car Upholsterer Apprentice Relationship Specialty Start Date End Date Fransico Pearson MD [address] [place] [address] [email or web address] PCP - General Internal Medicine 09/24/17 06/27/21 Paolo Dewey MD [address] [place] [address] [email or web address] PCP - General Family Medicine 06/28/21 10/17/23 Karena Gonzalez NP [address] [place] [phone] [email or web address] PCP - General Nurse Practitioner 10/18/23 Fransico Pearson MD [address] [place] [address] [email or web address] Historical LMR Provider 09/04/17 11/22/21 Seda Qureshi NP [address] [place] [address] Historical LMR Provider 09/04/17 11/22/21 Bill Segovia MD [address] [place] [address] [email or web address] Historical LMR Provider 09/04/17 11/22/21 Norma Sierra NP [address] [place] [phone] Historical LMR Provider 09/04/17 11/22/21 Raheem Moore DO [address] [place] [address] [email or web address] Hematology and Oncology 12/05/18 Paolo Dewey MD [address] [place] [address] [email or web address] Insurance Assigned Provider 07/25/22 07/24/23 Margarette Roberto MD [address] [place] [address] [email or web address] Insurance Assigned Provider 09/29/25 documented as of this encounter Additional Source Comments The information contained in this document represents components of the legal health record. It is not the complete legal health record.[facility]
--- OUTSIDE RECORDS SUMMARY | 2025-11-01 19:48 | XMS_ITS | Encounter Summary ---
Author Organization [facility] Address [address] [place] [phone] Phone Care Team Providers Care Key Entry Operator Name Role Phone Fransico Pearson MD Unavailable [phone] Seda Qureshi COSTUME DRAPER Unavailable [phone] Bill Segovia MD Unavailable [phone] Norma Sierra COSTUME DRAPER Unavailable [phone] Fransico Pearson MD Primary Care Provider [phone] Oscar Maciel Leroy DO Unavailable [phone] Paolo Dewey MD Primary Care Provider [phone] Paolo Dewey MD Unavailable [phone] Karena Gonzalez COSTUME [employer]APER Primary Care Provider [phone] Margarette Roberto MD Unavailable [phone] Reason for Referral * Occupational Therapy (Routine) - Closed Specialty Diagnoses / Procedures Referred By Kia t Referred To Contact Occupational Therapy Diagnoses Encounter for rehabilitation Margarette Roberto MD Phone: tel: fax: [email or web address] [address] [address] Phone: tel: Referral ID Status Reason Start Date Expiration Date Visits Re quested Visits Authorized [id number] Closed 01/24/2018 01/24/2019 1 1 * Occupational Therapy (Routine) - Closed Specialty Diagnoses / Procedures Referred By Kia gamez Referred To Contact Occupational Therapy Margarette Roberto MD Phone: tel: fax: [email or web address] [facility] [address] [place] [address] Phone: tel: Referral ID Status Reason Start Date Expiration Date Visits Re quested Visits Authorized [id number] Closed 01/24/2018 01/24/2019 1 1 Encounter Details Date Type Department Care Team (Late st Contact Info) Description 01/24/2018 Transcribe Orders [facility] [address] [place] [address] Margarette Roberto MD [address] [place] [phone] [email or web address] Encounter for rehabilitation (Primary Dx) Social History Tobacco Use Types Packs/Day Years Used Date Smoking Tobacco: Every Day Cigarettes Smokeless Tobacco: Never Alcohol Use Standard Drinks/Week Comments No 0 (1 standard drink = 0.6 oz pur e alcohol) Comments Unknown Sex and Gender Information Value Date Recorded Sex Assigned at Female 02/26/2018 1:42 PM EDT Legal Sex Female 8:53 PM EDT Gender Identity Female 02/26/2018 1:42 PM EDT Sexual Orientation Straight 02/26/2018 1: 42 PM EDT documented as of this encounter Plan of Treatment Scheduled Referrals Name Type Priority Associated Diagnoses Orde r Schedule Ambulatory referral to [facility] Occupational Therapy Outpatient Referral Routine Ordered: 01/24/2018 Ambulatory referral to [facility] Occupational Therapy Outpatient Referral Routine Encounter for rehabilitation Ordered: 01/24/2018 documented as of this encounter Visit Diagnoses Diagnosis Encounter for rehabilitation- Primary documented in this encounter Additional Health Concerns Infection Onset Date Last Indicated Resolved Time CoV-Risk 05/30/2020 05/31/2020 06/13/2020 1:28 AM EDT documented as of this encounter Care Teams Key Entry Operator Relationship Specialty Start Date End Date Fransico Pearson MD [address] [place] [address] [email or web address] PCP - General Internal Medicine 09/24/17 06/27/21 Paolo Dewey MD [address] [place] [phone] [email or web address] PCP - General Family Medicine 06/28/21 10/17/23 Karena Gonzalez NP [address] [place] [phone] [email or web address] PCP - General Nurse Practitioner 10/18/23 Fransico Pearson MD [address] [place] [address] [email or web address] Historical LMR Provider 09/04/17 11/22/21 Seda Qureshi COSTUME DRAPER [address] [place] [phone] Historical LMR Provider 09/04/17 11/22/21 Bill Segovia MD [address] [place] [address], [address] [place] [address] [email or web address] Historical LMR Provider 09/04/17 11/22/21 Norma Sierra, COSTUME DRAPER [address] [place] [address] Historical LMR Provider 09/04/17 11/22/21 Raheem Moore DO [address] [place] [address] [email or web address] Hematology and Oncology 12/05/18 Paolo Dewey MD [address] [place] [phone] [email or web address] Insurance Assigned Provider 07/25/22 07/24/23 Margarette Roberto MD [address] [place] [phone] [email or web address] Insurance Assigned Provider 09/29/25 documented as of this encounter Additional Source Comments The information contained in this document represents components of the legal health record. It is not the complete legal health record.[facility]
== END 2025-11-01 17:08 | disposition home or self-care (01) ==
PROVIDERS: Emergency Provider Emergency Medicine; PCP Internal Medicine
DX: S39.012A Strain of muscle, fascia and tendon of lower back, initial encounter (principal); X50.9XXA Other and unspecified overexertion or strenuous movements or postures, initial encounter; M62.830 Muscle spasm of back; Y93.89 Activity, other specified; Y92.019 Unspecified place in single-family (private) house as the place of occurrence of the external cause; Y99.9 Unspecified external cause status
CPT/HCPCS: 72100; 99283

== ENCOUNTER → 2025-11-01 15:57 | Outpatient (BNV) | payer MEDICAID, SELFPAY | PROVIDERS: Emergency Provider Emergency Medicine; PCP Internal Medicine; Visit Provider Radiology Body Imaging | DX: M51.360 Other intervertebral disc degeneration, lumbar region with discogenic back pain only (principal) | CPT/HCPCS: 72100 ==